=== PATIENT | male | born 1945 | race Caucasian/White ===

== ENCOUNTER 2019-10-16 08:03 | Emergency (ER) | payer MEDICARE, MEDICAID, SELFPAY ==
[2019-10-16 07:55] VITALS: BP 134/113; PULSE 101; RESP 16; TEMP 37; O2SAT 93; BMI 27.3
--- NOTE | 2019-10-16 07:55 | W.ED.MALEGU ---
HPI - Male Genitourinary General: Chief complaint: Urogenital-Male Stated complaint: Catheter issues History of Present Illness: HPI Narrative: 73-year-old male brought in by EMS for problems with catheter. Nursing reports he has been draining around the catheter. He is not had any fever sweats or chills he is complaining of some soreness on his buttocks as well. He denies fever sweats chills nausea vomiting or diarrhea denies shortness of breath or chest pain Associated symptoms: Deny dysuria, nausea or vomiting Review of Systems Const: Denies: fever, chills, body aches, change in appetite, fatigue or malaise ENMT: Denies: throat pain, ear pain, nasal discharge or nasal congestion Card: Denies: chest pain, edema, shortness of breath on exertion or shortness of breath when lying down Resp: Denies: shortness of breath, productive cough or non-productive cough GI: Denies: abdominal pain, nausea, vomiting, vomiting blood, coffee grounds in vomit, diarrhea, constipation, bloating, blood in stool or black tarry stool : Denies: flank pain, painful urination, urinary frequency or urinary urgency Skin/Breast: Denies: rash or itching PFSH ED PFSH: Statuses (acute, chronic, etc) shown below reflect problem list status as previously entered and may not be historically accurate Medical History Elevated prostate specific antigen [PSA] (Acute) Erosion of urethra (Acute) Urinary retention (Chronic) Surgical History Cystostomy in place (Acute) S/P cholecystectomy (Acute) Family History Father Cancer Mother , 90 CAD (coronary artery disease) Social History Smoking and tobacco status: former smoker Alcohol intake: never Marital status: Current occupational status: retired Physical Exam Const: COMMON NORMALS: no apparent distress GENERAL APPEARANCE: cooperative and comfortable ORIENTATION/CONSCIOUSNESS: Yes awake, Yes oriented to person, Yes oriented to place and Yes oriented to time HENMT: COMMON NORMALS: normocephalic, head/scalp atraumatic, hearing grossly normal bilaterally, external ears normal, EAC's normal, TM's normal bilaterally, nasal mucous membranes and turbinates normal, moist oral mucous membranes and oropharynx normal HEAD & SCALP: normocephalic and atraumatic NOSE: nasal mucous membranes and turbinates normal EXTERNAL EAR: Yes external ears normal EXTERNAL AUDITORY CANAL: EAC's normal TYMPANIC MEMBRANE: TM's normal bilaterally Eye: COMMON NORMALS: PERRL, EOMs intact bilaterally, conjunctivae normal and no scleral icterus CONJUNCTIVA: Yes conjunctivae normal PUPIL: Yes PERRL Neck/C-Spine: COMMON NORMALS: full ROM, no lymphadenopathy, supple and no JVD Lymph: LYMPHATIC: no lymphadenopathy noted and no lymphedema noted Resp: COMMON NORMALS: normal respiratory effort, no retractions, no use of accessory muscles and clear to auscultation bilaterally AUSCULTATION: clear to auscultation bilaterally Cardio: COMMON NORMALS: no JVD, regular rate, regular rhythm and no murmurs RATE: regular rate RHYTHM: regular rhythm GI: COMMON NORMALS: soft to palpation and no hepatosplenomegaly AUSCULTATION: Yes normoactive bowel sounds PALPATION: Yes soft, No tender, No guarding and Yes no hepatosplenomegaly Extremity: COMMON NORMALS: normal to inspection, normal capillary refill, no clubbing, cyanosis or edema, no calf tenderness and no pedal edema Neuro: SENSORIUM/ORIENTATION: Yes oriented to person, Yes oriented to place and Yes oriented to time Skin: NARRATIVE SKIN EXAM: Patient reported buttocks being sore when we examine his buttocks essentially from the belt line down to the gluteal fold the skin is macerated with small punctate areas scattered where there is partial-thickness degeneration from the skin no active drainage no sharp erythema no palpable nodules or abscesses. No exposed underlying tissue. Course ED course: Called patient's attending to discuss the skin care issues in the buttocks. We had called the senior care is difficult to assess from a conversation of them whether or not they were managing the pressure ulcer with wound care services. Discussed with patient's attending he may need this. At this time there is not appear to be an infection in the buttocks area related to this large area of skin breakdown however I am quite concerned that this may develop if this is not treated quickly. His attending will take appropriate steps at the senior care. Vital Signs: Vital signs: Vital Signs Temperature 98.5 F 10/16/19 10:25 Pulse Rate 84 10/16/19 10:25 Respiratory Rate 16 10/16/19 10:25 Blood Pressure 138/66 10/16/19 10:25 Pulse Oximetry 94 10/16/19 10:25 MDM - Male Lab Data: Labs: Lab Results 10/16/19 10/16/19 10/16/19 Range/Units 08:05 08:28 08:28 WBC 9.8 (4.0-10.0) 10^3/ uL RBC 4.31 (4.1-5.3) 10^6/u L Hgb 12.1 (11.7-16.6) g/dL Hct 37.6 L (42.0-52.0) % MCV 87.2 (80-94) fL MCH 28.1 (28.0-34.0) pg MCHC 32.2 (30.0-36.0) g/dL RDW 16.7 H (12.1-15.1) % Plt Count 201 (130-400) 10^3/c mm MPV 11.7 H (7.4-10.4) fL Neut % (Auto) 83.3 % Lymph % (Auto) 6.9 % [place] % (Auto) 4.8 % Eos % (Auto) 4.1 % Baso % (Auto) 0.6 % Neut # (Auto) 8.2 H (1.8-7.7) 10^3/u L Lymph # (Auto) 0.7 L (0.8-4.8) 10^3/u L [place] # (Auto) 0.5 (0.2-0.9) 10^3/u L Eos # (Auto) 0.4 (0.0-0.8) 10^3/u L Baso # (Auto) 0.1 (0.0-0.1) 10^3/u L Nucleated RBC % (a uto) 0 % Nucleated RBCs # 0.0 /100WBC Sodium 131 L (136-145) mmol/L Potassium 3.9 (3.5-5.1) mmol/L Chloride 97 L (98-107) mmol/L Carbon Dioxide 22 (22-29) mmol/L Anion Gap 15.9 (5-19) BUN 8 (8-23) mg/dL Creatinine 0.7 (0.7-1.2) mg/dL Glucose 170 H (74-106) mg/dL Calcium 8.8 (8.5-10.5) mg/dL Total Bilirubin 0.5 (0.15-1.2) mg/dL AST 16 (0-40) U/L ALT 11 (0-41) U/L Alkaline Phosphata se 129 (40-130) IU/L Total Protein 7.7 (6.6-8.7) g/dL Albumin 3.4 L (3.5-5.2) g/dL Globulin 4.3 (1.3-4.6) g/dL Urine Color Yellow (Yellow) Urine Appearance Sl hazy (CLEAR) Urine pH 7.0 (5-7) Ur Specific Gravit y 1.010 (1.005-1.030) Urine Protein Trace (Negative) Urine Glucose (UA) Norm (Normal) Urine Ketones Negative (Negative) Urine Occult Blood 3+ H (Negative) Urine Nitrate Positive H (Negative) Urine Bilirubin Neg (NEGATIVE) Urine Urobilinogen 1 H (Negative) mg/dL Ur Leukocyte Pauline ase 2+ H (Negative) Urine RBC 10-15 H (0-2) /hpf Urine WBC 40-55 H (0-5) /hpf Ur Squamous Epith Cells 0-4 H (0-5) Urine Bacteria 1+ H (NONE) Urine Mucus Trace Discharge Plan Discharge Patient Disposition: [facility] Clinical Impression: Urinary tract infection, Chronic suprapubic catheter, Decubitus ulcer of buttock, stage 2 Condition: Stable Prescriptions: New Bactrim DS 800-160 mg tablet 1 tab PO BID 5 Days Qty: 10 RF: 0 No Action bisacodyl [Dulcolax (bisacodyl)] 10 mg suppository 10 mg MD .prn RF: 0 magnesium hydroxide [Vela Milk of Magnesia] 400 mg/5 mL suspension 15 ml PO DAILY PRN (Reason: Constipation) RF: 0 acetaminophen [Tylenol] 325 mg capsule 650 mg PO Q4H PRN (Reason: Pain) RF: 0 aspirin 325 mg tablet 325 mg PO .prn RF: 0 loratadine 10 mg capsule 10 mg PO DAILY PRN (Reason: Allergy Symptoms) RF: 0 finasteride 5 mg tablet 5 mg PO DAILY RF: 0 omeprazole 40 mg capsule,delayed release(DR/EC) 40 mg PO DAILY RF: 0 metoprolol tartrate 50 mg tablet 50 mg PO BID RF: 0 docusate sodium [Colace] 100 mg capsule 100 mg PO BID RF: 0 digoxin 125 mcg (0.125 mg) tablet 125 mcg PO DAILY RF: 0 atorvastatin 20 mg tablet 20 mg PO DAILY RF: 0 nitroglycerin [Nitrostat] 0.4 mg tablet, sublingual 0.4 mg SUBLINGUAL .prn RF: 0 mineral oil [Fleet Mineral Oil] Enema 118 ml MD .prn RF: 0 Biofreeze (menthol) 4 % gel 1 applic TOPICAL .prn PRN (Reason: Pain) RF: 0 hydrocodone-acetaminophen 5-325 mg tablet 1 tab PO BEDTIME PRN (Reason: Pain) RF: 0 Novolog Flexpen U-100 Insulin 100 unit/mL (3 mL) insulin pen 18 unit SUBCUT DAILY RF: 0 Eucerin Skin Calming Cream 1 applic TOPICAL .prn RF: 0 Levemir U-100 Insulin 100 unit/mL solution 70 unit SUBCUT BEDTIME RF: 0 hydrocodone-acetaminophen 5-325 mg Tablet 1 tab PO BID PRN (Reason: Pain) RF: 0 Eucerin Calming Itch-Relief 0.1 % Lotion 1 % TOPICAL BID RF: 0 Discharge Orders: Discharge Order (Routine); Ordered 10/16/19 Ordered By: Johnny Palumbo Referrals: Jannette Stephens MD [Primary Care Provider] - Discharge Diet: Usual diet Discharge Activity: Resume usual activity Activity Restrictions/Additional Instructions: Discharge back to the senior care we will start him on Bactrim until the culture results from the urine are back the catheter flushed without difficulty no changes for the catheter. Jennifer mostly concerned about the decubitus ulcers on his buttocks called and confirmed that he is getting wound care at the senior care and needs appropriate follow-up on a long-term basis. Discharge Date/Time: 10/16/19 11:52 Coding Level of Care Code ED Flumer for Kiesha Hull Exam Problem Focused
[2019-10-16 08:10] VITALS: O2SAT 94
--- NOTE | 2019-10-16 08:11 | PC.NURSE ---
Skin assessment shows breakdown to right heel with drainage. Lower back, buttocks, and posterior thighs bilateral have large color of redness with purple and breakdown of skin.
--- NOTE | 2019-10-16 08:27 | XRR_ITS ---
PROCEDURE INFORMATION: Exam: XR Chest, 1 View Exam date and time: 10/16/2019 9:04 AM Age: 73 years old Clinical indication: Dyspnea TECHNIQUE: Imaging protocol: XR of the chest Views: 1 view. COMPARISON: CR Chest 1 [place] [id number] 05/14/2019 10:38 AM FINDINGS: Lungs: Mild interstitial prominence. Questionable left basilar airspace/pleural disease which can be better evaluated with PA and lateral chest radiographs. Heart: Cardiac silhouette upper limits of normal in size. Diaphragms: Asymmetric elevation right hemidiaphragm. Bones/joints: Degenerative change. XR/XR chest 1V portable [id number] IMPRESSION: Questionable left basilar airspace/pleural disease which can be better evaluated with PA and lateral chest radiographs.
[2019-10-16 08:36] LABS: Basophils # 0.1 10^3/uL (0.0-0.1); Basophils % 0.6 %; Eosinophils # 0.4 10^3/uL (0.0-0.8); Eosinophils % 4.1 %; Hematocrit 37.6 % (42.0-52.0); Hemoglobin 12.1 g/dL (11.7-16.6); Lymphocytes # 0.7 10^3/uL (0.8-4.8); Lymphocytes % 6.9 %; Mean Corpuscular HGB Conc 32.2 g/dL (30.0-36.0); Mean Corpuscular Hemoglobin 28.1 pg (28.0-34.0); Mean Corpuscular Volume 87.2 fL (80-94); Mean Platelet Volume 11.7 fL (7.4-10.4); Monocytes # 0.5 10^3/uL (0.2-0.9); Monocytes % 4.8 %; Neutrophils # 8.2 10^3/uL (1.8-7.7); Neutrophils % 83.3 %; Nucleated Red Blood Cells % 0 %; Platelet Count 201 10^3/cmm (130-400); Red Blood Count 4.31 10^6/uL (4.1-5.3); Red Cell Distribution Width 16.7 % (12.1-15.1); White Blood Count 9.8 10^3/uL (4.0-10.0)
[2019-10-16 08:37] VITALS: RESP 18
[2019-10-16] MEDS: morphine 4 mg/mL SDV 1 mL 2 MG IVP (08:37)
[2019-10-16] MEDS: ondansetron 2 mg/ML SDV 2 mL 4 MG IVP (08:37)
[2019-10-16 08:56] LABS: Alanine Aminotransferase 11 U/L (0-41); Albumin Level 3.4 g/dL (3.5-5.2); Alkaline Phosphatase 129 IU/L (40-130); Anion Gap 15.9 (5-19); Aspartate Amino Transferase 16 U/L (0-40); Blood Urea Nitrogen 8 mg/dL (8-23); Calcium 8.8 mg/dL (8.5-10.5); Carbon Dioxide 22 mmol/L (22-29); Chloride 97 mmol/L (98-107); Globulin 4.3 g/dL (1.3-4.6); Glucose 170 mg/dL (74-106); Potassium 3.9 mmol/L (3.5-5.1); Sodium 131 mmol/L (136-145); Total Bilirubin 0.5 mg/dL (0.15-1.2); Total Protein 7.7 g/dL (6.6-8.7)
[2019-10-16 09:29] LABS: Add Urine Microscopic? YES; Bilirubin Urine Neg (NEGATIVE); Blood Urine 3+ (Negative); Glucose Urine UA Norm (Normal); Ketones Urine Negative (Negative); Leukocyte Esterase Urine 2+ (Negative); Nitrate Urine Positive (Negative); Protein Urine Trace (Negative); Urine Appearance SL Hazy (CLEAR); Urine Color Yellow (Yellow); Urobilinogen Urine 1 mg/dL (Negative)
[2019-10-16 09:30] LABS: Bacteria Urine 1+; Mucus Urine TRACE; Squamous Epithelial Cell Urine 0-4 (0-5); WBC Urine 40-55 /hpf (0-5)
[2019-10-16 09:31] LABS: Add Urine Culture? No
[2019-10-16 09:35] VITALS: BP 108/64; PULSE 99; O2SAT 95
[2019-10-16 10:25] VITALS: BP 138/66; PULSE 84; RESP 16; TEMP 36.9; O2SAT 94
--- NOTE | 2019-10-16 10:29 | PC.NURSE ---
jockey valet at [facility] called, report given. She did not know for certain if patient receives wound care for skin breakdown to backside. RN was uncertain on many aspects of patients care at [facility]. Dr. Palumbo notified.
--- NOTE | 2019-10-16 10:44 | PC.NURSE ---
Blayne kumar scheduled, reference number [id number]
== END 2019-10-16 11:52 | disposition skilled nursing facility (03) ==
PROVIDERS: Emergency Provider Family Medicine; Family Provider Family Medicine; PCP Family Medicine
DX: N39.0 Urinary tract infection, site not specified (principal); L89.302 Pressure ulcer of unspecified buttock, stage 2; Z79.82 Long term (current) use of aspirin; Z79.4 Long term (current) use of insulin; Z87.891 Personal history of nicotine dependence
CPT/HCPCS: 36415; 71045; 80053; 81001; 85025; 87040; 87077; 87086; 87186; 96374; 96375; 99283; A9270; J2270; J2405

== ENCOUNTER 2020-05-28 17:08 | Emergency (ER) | payer MEDICARE, MEDICAID, SELFPAY ==
[2020-05-28 17:29] VITALS: BP 121/71; PULSE 70; RESP 16; TEMP 36.4; O2SAT 99; BMI 27.3
--- NOTE | 2020-05-28 17:48 | ED_ITS ---
HPI - General Adult General: Chief complaint: General Medical Stated complaint: CATH REPLACEMENT Time Seen by Provider: 05/28/20 17:23 History of Present Illness: HPI narrative: 74-year-old male. Suprapubic catheter displaced at the longterm unknown length of time and is been out the suprapubic tract has been established for an extended period of time and is well granulated. Staff at [facility] made several attempts to replace it were unable to do so so he was sent here. Onset (ago): unknown Location: abdomen Relieving factors: none Exacerbating factors: none Associated symptoms: Deny chest pain, confusion, cough, diaphoresis, decreased appetite, dyspnea, fevers/chills, headache(s), malaise, nausea, rash, palpitations, seizures, short of breath, syncope, vomiting or weakness Treatments prior to arrival: none Review of Systems Const: Denies: malaise or diaphoresis Card: Denies: chest pain, palpitations or syncope Resp: Denies: dyspnea GI: Denies: nausea or vomiting : Denies: flank pain, dysuria, urinary frequency or urinary urgency Skin/Breast: Denies: rash Neuro: Denies: headache(s) or confusion PFSH ED PFSH: Medical History Elevated prostate specific antigen [PSA] Erosion of urethra Urinary retention Surgical History Cystostomy in place S/P cholecystectomy Family History Father Cancer Mother , 90 CAD (coronary artery disease) Social History Smoking and tobacco status: former smoker Alcohol intake: never Marital status: Current occupational status: retired Physical Exam Const: COMMON NORMALS: no acute distress GENERAL APPEARANCE: cooperative and comfortable HENMT: COMMON NORMALS: normocephalic, atraumatic and hearing grossly normal bilaterally HEAD & SCALP: normocephalic and atraumatic Neck/C-Spine: COMMON NORMALS: no JVD Resp: COMMON NORMALS: normal respiratory effort, No retractions, No use of accessory muscles and clear to auscultation bilaterally AUSCULTATION: clear to auscultation bilaterally Cardio: COMMON NORMALS: no JVD, regular rate, regular rhythm and No murmurs present (Cardio) RATE: regular rate RHYTHM: regular rhythm GI: COMMON NORMALS: Soft to palpation and No hepatosplenomegaly present AUSCULTATION: Yes normoactive bowel sounds PALPATION: Yes Soft to palpation, No Tenderness to palpation present (GI), No Guarding due to palpation present (GI) and Yes No hepatosplenomegaly present OTHER: Suprapubic catheter site well granulated is leaking small amounts of urine. Extremity: COMMON NORMALS: normal to inspection, capillary refill normal, no clubbing, cyanosis or edema, no calf tenderness and no pedal edema Skin: COMMON NORMALS: no rashes or lesions noted GENERAL SKIN EXAM: no rashes or lesions noted Procedures Catheter Insertion (Urinary) Reason for placing indwelling catheter: Acute urinary retention Patient has the following: history of catheter associated urinary tract infection Bladder scan/ultrasound used before catheterization: Yes Estimated amount of urine (mLs): 400 Antiseptic solution prep: Other Catheter type/location: Suprapubic Catheter balloon size (mL): 30 Results: ultrasound used for placement verification Complications: Multiple attempts made on suprapubic catheter using 18 which is usually present also using a 12 and a 16 finally 16 coud? none of which we could get to the bladder. Examining the tract under ultrasound he can see the tip of the catheter at the bladder wall but would not pass almost appears as if there was a pocket outside of the bladder. Shaver was then placed through the urethra humate meatus of the penis. There is significant breakdown to the meatus from long-term chronic indwelling Shaver previously. Discussed with Dr. George he recommends this approach since the suprapubic catheter appears to have been out long enough to close the tract. Course Vital Signs: Vital signs: Vital Signs Temperature 97.6 F 05/28/20 17:29 Pulse Rate 70 05/28/20 17:29 Respiratory Rate 16 05/28/20 19:38 Blood Pressure 121/71 05/28/20 17:29 Pulse Oximetry 99 05/28/20 17:29 MDM - General Adult MDM Narrative: Medical decision making narrative: Pubic catheter out for an unknown length of time multiple attempts made using various catheters and even feeding tube could reestablish the tract evidently has been outlying office begun to close. Discussed by phone with Dr. George he is not on-call and not currently available to come to the emergency room [place]. He advised us to try feeding tube which we did which did not pass. On his advice we placed a Shaver through the urethral meatus. There is significant breakdown of the meatus because of a long-term Shaver that was previously in place however this will allow decompression of the bladder until able to get the patient back in for reestablishment of the suprapubic catheter. Discharge Plan Discharge Patient Disposition: Home Clinical Impression: Encounter for suprapubic catheter care, Urinary retention, Cystostomy in place Condition: Stable Prescriptions: No Action bisacodyl [Dulcolax (bisacodyl)] 10 mg suppository 10 mg [place] .prn RF: 0 magnesium hydroxide [Vela Milk of Magnesia] 400 mg/5 mL suspension 15 ml PO DAILY PRN (Reason: Constipation) RF: 0 acetaminophen [Tylenol] 325 mg capsule 650 mg PO Q4H PRN (Reason: Pain) RF: 0 aspirin 325 mg tablet 325 mg PO .prn RF: 0 loratadine 10 mg capsule 10 mg PO DAILY PRN (Reason: Allergy Symptoms) RF: 0 finasteride 5 mg tablet 5 mg PO DAILY RF: 0 omeprazole 40 mg capsule,delayed release(DR/EC) 40 mg PO DAILY RF: 0 metoprolol tartrate 50 mg tablet 50 mg PO BID RF: 0 docusate sodium [Colace] 100 mg capsule 100 mg PO BID RF: 0 digoxin 125 mcg (0.125 mg) tablet 125 mcg PO DAILY RF: 0 atorvastatin 20 mg tablet 20 mg PO DAILY RF: 0 nitroglycerin [Nitrostat] 0.4 mg tablet, sublingual 0.4 mg SUBLINGUAL .prn RF: 0 mineral oil [Fleet Mineral Oil] Enema 118 ml [place] .prn RF: 0 Biofreeze (menthol) 4 % gel 1 applic TOPICAL .prn PRN (Reason: Pain) RF: 0 hydrocodone-acetaminophen 5-325 mg tablet 1 tab PO BEDTIME PRN (Reason: Pain) RF: 0 Novolog Flexpen U-100 Insulin 100 unit/mL (3 mL) insulin pen 18 unit SUBCUT DAILY RF: 0 Eucerin Skin Calming Cream 1 applic TOPICAL .prn RF: 0 Levemir U-100 Insulin 100 unit/mL solution 70 unit SUBCUT BEDTIME RF: 0 hydrocodone-acetaminophen 5-325 mg Tablet 1 tab PO BID PRN (Reason: Pain) RF: 0 Eucerin Calming Itch-Relief 0.1 % Lotion 1 % TOPICAL BID RF: 0 Discharge Orders: Discharge Order (Routine); Ordered 05/28/20 Ordered By: Johnny Palumbo Referrals: Jannette Stephens MD [Primary Care Provider] - Activity Restrictions/Additional Instructions: Follow-up with urology as soon as you are able Discharge Date/Time: 05/28/20 19:40 Coding Level of Care Code ED Interior Design Coordinator for Kiesha Hull
[2020-05-28 19:38] VITALS: RESP 16
== END 2020-05-28 19:40 | disposition home or self-care (01) ==
LOC: ER 18:12
PROVIDERS: Emergency Provider Family Medicine; PCP Family Medicine
DX: Z46.6 Encounter for fitting and adjustment of urinary device (principal); R33.9 Retention of urine, unspecified; Z93.50 Unspecified cystostomy status; Z79.82 Long term (current) use of aspirin; Z79.4 Long term (current) use of insulin; Z87.891 Personal history of nicotine dependence
CPT/HCPCS: 12345; 51702; 99283

== ENCOUNTER 2020-06-24 15:09 | Outpatient (CLI) | payer MEDICARE, MEDICAID, SELFPAY | END 2020-06-24 15:10 | disposition home or self-care (01) | LOC: WOUND 15:10 | PROVIDERS: PCP Family Medicine; Visit Provider Nurse Practitioner Family | DX: L89.612 Pressure ulcer of right heel, stage 2 (principal) | CPT/HCPCS: 11042 ==

== ENCOUNTER 2020-06-27 11:28 | Day surgery (SDC) | payer MEDICARE, MEDICAID, SELFPAY ==
[2020-06-26 09:27] VITALS: BMI 30.7
[2020-06-27 11:54] VITALS: BP 131/69; PULSE 54; RESP 18; TEMP 36.6; O2SAT 97
[2020-06-27] MEDS: sodium chloride 0.9% 1,000 ML 30 ML IV (12:00)
--- NOTE | 2020-06-27 12:07 | ANES.PREANE2 ---
Pre-Anesthetic Assessment Pre-Anesthetic Assessment: Height/Weight: Height 1.68 m Weight 86.364 kg Temp Pulse Resp BP Pulse Ox 97.9 F 54 L 18 131/69 97 06/27/20 11:54 06/27/20 11:54 06/27/20 11:54 06/27/20 11:54 06/27/20 11:54 Preop Diagnosis: Chronic urinary retention, displaced suprapubic tube Proposed Procedure: Operation Date: 06/27/20 13:00 Proposed Procedures p Suprapubic Catheter Placement 97533 R33.9(Not Applicable) - Edvin George MD s Cystoscopy(Not Applicable) - Edvin George MD Last intake: Intake Last Liquid Date 06/26/20 Last Liquid Time 18:00 Last Solid Date 06/26/20 Last Solid Time 18:00 CV/HEM: CV/HEM: Afib, CHF, HTN and PVD Comments: sestabmibi stress 2018 - EF 73%, ischemia RCA/LCX CP stress 2018 - negative Metabolic: Metabolic: DM and Hyperlipidemia Neuropsych: Comments: spinal cord lesion , CVA, hemiparesis Anesthetic Plan: ASA status: 4 Risk of > 500 ml blood loss (7ml/kg in children): No PFSH Anesthesia PFSH: Medical History (Updated 06/19/20 @ 11:31 by Edvin George MD) Elevated prostate specific antigen [PSA] Erosion of urethra Urinary retention Surgical History Cystostomy in place S/P cholecystectomy Family History Father Cancer Mother , 90 CAD (coronary artery disease) Social History Smoking and tobacco status: former smoker Alcohol intake: never Marital status: Current occupational status: retired Data Anesthesia Cardiac Studies: No Data to Display
[2020-06-27 12:18] LABS: Glucose Point of Care 141 mg/dL (70-110)
--- NOTE | 2020-06-27 13:09 | W.PM.OPSUD ---
Surgery/Procedure H&P Update DATE OF PROCEDURE: June 27, 2020 DATE H&P PERFORMED: 06/19/20 H&P UPDATE INFORMATION: I have reviewed H&P completed within last 30 days, I have examined patient prior to procedure, No changes to prior documentation and H&P is in [facility] on date indicated PREOP DIAGNOSIS: Chronic urinary retention, displaced suprapubic tube PLANNED PROCEDURE: Operation Date: 06/27/20 13:00 Proposed Procedures p Suprapubic Catheter Placement 60295 R33.9(Not Applicable) - Edvin George MD s Cystoscopy(Not Applicable) - Edvin George MD
--- NOTE | 2020-06-27 13:13 | PM.OP ---
Operative Report Date of procedure: June 27, 2020 Pre-op Diagnosis: Chronic urinary retention, displaced suprapubic tube Post-op diagnosis: same Procedure Done: 1. Cystoscopy 2. Percutaneous placement of cystostomy tube, 16 [facility] Pathology: none sent Surgeon: Ariel Anesthesia: General Estimated blood loss: Minimal Urine output: Not measured Complications: None Findings: Placed without difficulty. 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 Recently his suprapubic tube became dislodged and at time of discovery the suprapubic tract had scarred shut. It was decided to replace the suprapubic tube under anesthesia. No contraindications to surgery. He is been holding his aspirin. Procedure: After routine preoperative evaluation examination and obtaining of informed consent he was taken to the operating suite on 06/27/2020 where general anesthesia was administered without difficulty after appropriate timeout was performed, SCDs confirmed to be functioning, preoperative antibiotics administered, beta-melanie protocol confirmed. Prepped and draped in the usual sterile fashion in dorsolithotomy position pain careful attention to avoiding pressure points. [address] [facility] cystoscope with 30 degree lens was introduced into the urethral meatus and advanced into the bladder under videoscopy. Bladder was systematically examined with 30 and 70 degree lens scopes. With a [address] in his bladder pressure placed on the anterior wall was easily identifiable with the bladder distended. A spinal needle was passed just inferior and to the left of his previous suprapubic site and into the bladder without difficulty. Localization was confirmed to be appropriate in position. An 18 [address] [facility] inner diameter suprapubic trocar with sheath was then advanced under cystoscopic guidance through the same tract into the bladder. The trocar was removed after the sheath was all the way into the bladder and an [address] [facility] [place] catheter was passed into the bladder under cystoscopic guidance the balloon inflated with 10 cc and the sheath withdrawn. The catheter was snugged to the anterior bladder wall and then secured with 2 nonabsorbable sutures to the skin. Spontaneous drainage and confirmed the catheter to be functioning well. Sterile dressing was applied and the procedure completed. PLANS: 1. Discharge from outpatient surgery and follow-up in about 5 weeks with suprapubic changed to 18-20 [facility].
[2020-06-27 14:01] VITALS: BP 99/61; PULSE 62; RESP 18; TEMP 36.1; O2SAT 94
[2020-06-27 14:16] VITALS: BP 137/72; PULSE 59; RESP 18; TEMP 36.1; O2SAT 95
--- NOTE | 2020-06-27 15:00 | ANE.PACU2 ---
Inpatient post-anesthesia follow up: Airway intact: Yes Vital signs: Temperature 97.0 F Pulse Rate 59 Respiratory Rate 18 Blood Pressure 137/72 Pulse Oximetry 95 Oxygen Delivery Me thod Room Air Oxygen Flow Rate Fraction of Inspir ed Oxygen Hydration adequate: Yes Nausea and vomiting: No Pain level: 2 Mental status: Baseline
== END 2020-06-27 15:00 | disposition home or self-care (01) ==
PROVIDERS: PCP Family Medicine; Visit Provider Urology
PROC: (CPT 51102; principal; 2020-06-27 13:00)
PROC: 0TJB8ZZ Inspection of Bladder, Via Natural or Artificial Opening Endoscopic (ICD-10-PCS; CPT 52000; 2020-06-27 13:00)
DX: R33.9 Retention of urine, unspecified (principal); E11.9 Type 2 diabetes mellitus without complications; E78.5 Hyperlipidemia, unspecified; Z86.73 Personal history of transient ischemic attack (TIA), and cerebral infarction without residual deficits; Z87.891 Personal history of nicotine dependence
CPT/HCPCS: 51102; 12345; 36416; 82962; J0690; J2704; J3010; J7030

== ENCOUNTER 2020-08-07 09:45 | Outpatient (CLI) | payer MEDICARE, MEDICAID, SELFPAY | END 2020-08-07 09:46 | disposition home or self-care (01) | LOC: WOUND 09:47 | PROVIDERS: PCP Family Medicine; Visit Provider Nurse Practitioner Family | DX: I96 Gangrene, not elsewhere classified (principal); L89.623 Pressure ulcer of left heel, stage 3 | CPT/HCPCS: 11042 ==

== ENCOUNTER 2020-09-22 21:03 | Emergency (ER) | payer MEDICARE, MEDICAID, SELFPAY ==
[2020-09-22 21:07] VITALS: BP 147/82; PULSE 61; RESP 18; TEMP 36.8; O2SAT 97; BMI 29.8
[2020-09-22 22:09] VITALS: BP 135/75; PULSE 59; RESP 17; O2SAT 97
--- NOTE | 2020-09-22 22:48 | PC.NURSE ---
Unable to flush suprapubic catheter. Physician notified.
[2020-09-23] VITALS: BP 127/68; PULSE 67; RESP 17; O2SAT 97
[2020-09-23 00:39] LABS: Add Urine Microscopic? YES; Bilirubin Urine Neg (Negative); Blood Urine 3+ (Negative); Glucose Urine UA Norm (Normal); Ketones Urine Negative (Negative); Leukocyte Esterase Urine 2+ (Negative); Nitrate Urine Negative (Negative); Protein Urine 1+ (Negative); Urine Appearance Cloudy (CLEAR); Urine Color Yellow (Yellow); Urobilinogen Urine 1 mg/dL (Negative); pH Urine 7 (5-7)
[2020-09-23 00:48] LABS: Add Urine Culture? Yes; Amorphous Sediment Urine 4+ /hpf; Bacteria Urine 4+ /hpf; RBC Urine TOO NUMEROUS TO CNT /hpf (0-2); WBC Urine TOO NUMEROUS TO CNT /hpf (0-5)
[2020-09-23] MEDS: nitrofurantoin SR (BID) 100 mg Capsule PO (01:22)
[2020-09-23 01:29] VITALS: BP 147/77; PULSE 59; RESP 16; TEMP 36.8; O2SAT 97
--- NOTE | 2020-09-23 01:29 | PC.NURSE ---
Called [facility] [place] to set up patient ride back to group home. [facility] stated it would be 30 minutes to 3 hours to set up ride.
--- NOTE | 2020-09-23 01:52 | W.ED.MALEGU ---
HPI - Male Genitourinary General: Chief complaint: Urogenital-Male Stated complaint: CATH ISSUES Time Seen by Provider: 09/22/20 21:10 History of Present Illness: HPI Narrative: 74-year-old gentleman with chronic suprapubic catheter, indwelling. He presents from a long-term where his catheter seems to be clogged. Bloody output was noted. He denies any fever, increasing discomfort, or other symptoms Complaint: other Onset (ago): hour(s) Duration: constant Severity: moderate Quality: other Relieving factors: none Exacerbating factors: none Context: indwelling catheter Associated symptoms: Reports hematuria and urinary retention; Deny fevers/chills or nausea Review of Systems Const: Denies: fever(s) or chills Card: Denies: chest pain or palpitations Resp: Denies: dyspnea, productive cough or non-productive cough GI: Denies: nausea : Reports: hematuria Neuro: Denies: headache(s) or confusion PFS ED PFSH: Medical History (Updated 09/23/20 @ 00:58 by Quincy Mustafa DO) Elevated prostate specific antigen [PSA] Erosion of urethra Urinary retention Surgical History Cystostomy in place S/P cholecystectomy Family History Father Cancer Mother , 90 CAD (coronary artery disease) Social History Smoking and tobacco status: former smoker Alcohol intake: never Marital status: Current occupational status: retired Physical Exam Const: COMMON NORMALS: no acute distress, patient oriented x3 and alert Chest: COMMONS NORMALS: normal inspection of the chest Resp: COMMON NORMALS: normal respiratory effort, No retractions, No use of accessory muscles and clear to auscultation bilaterally AUSCULTATION: clear to auscultation bilaterally Cardio: COMMON NORMALS: regular rate, regular rhythm and No murmurs present (Cardio) RATE: regular rate RHYTHM: regular rhythm : OTHER: Suprapubic catheter in place, blood in the tube. No output, bloody dark urine in the Shaver bag. Neuro: COMMON NORMALS: patient oriented x3 SENSORIUM/ORIENTATION: Yes alert Course ED course: Once appropriate Shaver size was found, indwelling suprapubic catheter was removed without complication. Under sterile technique 20 Yi catheter was placed through the same suprapubic opening with immediate drainage of cloudy urine that did not appear grossly bloody. Urinalysis from fresh sample shows significant white and red cells, with bacteria, and leukocyte esterase suggestive urinary tract infection. He will be treated for this. He is hemodynamically stable. He is afebrile. Vital Signs: Vital signs: Vital Signs Temperature 98.2 F 09/23/20 01:29 Pulse Rate 59 L 09/23/20 01:29 Respiratory Rate 16 09/23/20 01:29 Blood Pressure 147/77 09/23/20 01:29 Pulse Oximetry 97 09/23/20 01:29 MDM - Male Lab Data: Labs: Lab Results 09/23/20 Range/Units 00:27 Urine Color Yellow (Yellow) Urine Appearance Cloudy (CLEAR) Urine pH 7 (5-7) Ur Specific Gravit y 1.010 (1.005-1.030) Urine Protein 1+ H (Negative) Urine Glucose (UA) Norm (Normal) Urine Ketones Negative (Negative) Urine Blood 3+ H (Negative) Urine Nitrate Negative (Negative) Urine Bilirubin Neg (Negative) Urine Urobilinogen 1 H (Negative) mg/dL Ur Leukocyte Pauline ase 2+ H (Negative) Urine RBC Too numerous to c nt H (0-2) /hpf Urine WBC Too numerous to c nt H (0-5) /hpf Ur Squamous Epith Cells None (0-5) /hpf Amorphous Sediment 4+ /hpf Urine Bacteria 4+ H (NONE) /hpf Discharge Plan Discharge Patient Disposition: Home Clinical Impression: Acute UTI Blocked suprapubic catheter Qualifiers: Encounter type: initial encounter Qualified Code(s): T83.090A - Other mechanical complication of cystostomy catheter, initial encounter Condition: Stable Prescriptions: New Macrobid 100 mg capsule 100 mg PO BID 7 Days Qty: 14 RF: 0 No Action magnesium hydroxide [Vela Milk of Magnesia] 400 mg/5 mL suspension 15 ml PO DAILY PRN (Reason: Constipation) RF: 0 aspirin 325 mg tablet 325 mg PO .prn RF: 0 Hold Instructions: Resume on 07/01/20. finasteride 5 mg tablet 5 mg PO DAILY RF: 0 omeprazole 40 mg capsule,delayed release(DR/EC) 40 mg PO DAILY RF: 0 metoprolol tartrate 50 mg tablet 75 mg PO BID RF: 0 docusate sodium [Colace] 100 mg capsule 100 mg PO BID RF: 0 digoxin 125 mcg (0.125 mg) tablet 125 mcg PO DAILY RF: 0 atorvastatin 20 mg tablet 20 mg PO DAILY RF: 0 nitroglycerin [Nitrostat] 0.4 mg tablet, sublingual 0.4 mg SUBLINGUAL .prn RF: 0 Biofreeze (menthol) 4 % gel 1 applic TOPICAL .prn PRN (Reason: Pain) RF: 0 hydrocodone-acetaminophen 5-325 mg tablet 1 tab PO BEDTIME PRN (Reason: Pain) RF: 0 Eucerin Skin Calming Cream 1 applic TOPICAL .prn RF: 0 Levemir U-100 Insulin 100 unit/mL solution 75 unit SUBCUT BEDTIME RF: 0 Novolog Flexpen U-100 Insulin 100 unit/mL (3 mL) insulin pen 18 unit SUBCUT DAILY RF: 0 polyethylene glycol 3350 17 gram/dose powder 17 gm PO DAILY RF: 0 loratadine [Claritin] 10 mg tablet 10 mg PO DAILY RF: 0 nutritional [id number] 0.03-1 gram-kcal/mL liquid 1 each PO BID RF: 0 bisacodyl 10 mg suppository 10 mg LA DAILY PRNRF: 0 acetaminophen [Tylenol] 325 mg tablet 325 mg PO QID PRNRF: 0 prostat PO BID RF: 0 nystatin 100,000 unit/gram ointment 1 applic topical BID PRNRF: 0 hydrocodone-acetaminophen 5-325 mg Tablet 1 tab PO BID PRN (Reason: Pain) RF: 0 Eucerin Calming Itch-Relief 0.1 % Lotion 1 % TOPICAL BID RF: 0 Discharge Orders: Discharge ED (Routine); Ordered 09/23/20 Ordered By: Quincy Mustafa Referrals: Jannette Stephens MD [Primary Care Provider] - 4-7 days Discharge Diet: Usual diet and Diabetic Patient Instructions: Shaver Catheter Care, Urinary Tract Infection in Men (ED), How to Care for Your Suprapubic Catheter (ED) Activity Restrictions/Additional Instructions: Return for fever greater than 100, mental status changes, continued problems with the catheter, other concerning symptoms. Coding Level of Care Code ED In Store Marketing Associate for Chg Fwd Exam Expanded Problem Focused
--- NOTE | 2020-09-23 04:38 | PC.NURSE ---
Blayne called to finish set up for ride for patient.
== END 2020-09-23 06:10 | disposition home or self-care (01) ==
PROVIDERS: Emergency Provider Emergency Medicine; PCP Family Medicine
DX: T83.090A Other mechanical complication of cystostomy catheter, initial encounter (principal); N39.0 Urinary tract infection, site not specified; Z79.82 Long term (current) use of aspirin; Z79.4 Long term (current) use of insulin; Z87.891 Personal history of nicotine dependence
CPT/HCPCS: 12345; 51702; 81001; 87077; 87086; 87186; 99282; 99283

== ENCOUNTER 2020-11-07 09:32 | Outpatient (CLI) | payer MEDICARE, MEDICAID, SELFPAY | END 2020-11-07 09:33 | disposition home or self-care (01) | LOC: WOUND 09:33 | PROVIDERS: PCP Family Medicine; Visit Provider Nurse Practitioner Family | DX: E11.621 Type 2 diabetes mellitus with foot ulcer (principal); L97.422 Non-pressure chronic ulcer of left heel and midfoot with fat layer exposed | CPT/HCPCS: 11042; G0463; L4397 ==

== ENCOUNTER 2021-05-10 16:45 | Emergency (ER) | payer MEDICARE, MEDICAID, SELFPAY ==
[2021-05-10] VITALS (7 sets, daily range): BP systolic 94–119; BP diastolic 52–72; PULSE 64–87; RESP 12–18; TEMP 36.4–36.8; O2SAT 91–95
--- NOTE | 2021-05-10 17:25 | ED_ITS ---
HPI - Fever General: Chief Complaint: Fever Stated Complaint: FEVER; BODY ACHES Time Seen by Provider: 05/10/21 17:25 History of Present Illness: HPI Narrative: Patient was [facility] the ER [facility] for fever. It was reported patient had 105 fever. Patient was given Rocephin and acetaminophen prior to arrival to the ER. Patient has a history of diabetes, prostate problems, atrial fib, hyperlipidemia. Patient is nonverbal, poor historian, history was obtained from EMS and nursing staff. MD elicited complaint: fever Review of Systems General: Reports: 10 or more systems reviewed and unremarkable except in HPI and below PFSH ED PFSH: Medical History (Updated 05/10/21 @ 20:23 by EUGENIA Bates) Elevated prostate specific antigen [PSA] Erosion of urethra Urinary retention Surgical History Cystostomy in place S/P cholecystectomy Family History Father Cancer Mother , 90 CAD (coronary artery disease) Social History Smoking and tobacco status: former smoker Alcohol intake: never Marital status: Current occupational status: retired Physical Exam Const: COMMON NORMALS: no acute distress and patient oriented x3 GENERAL APPEARANCE: cooperative HENMT: COMMON NORMALS: normocephalic and Normal external nose present HEAD & SCALP: normal to inspection and normocephalic NOSE: Normal external nose present MOUTH: Normal oral and palatal mucosa present Eye: GENERAL EYE: appearance normal, both eyes and all related structures Neck/C-Spine: COMMON NORMALS: full ROM Lymph: LYMPHATIC: no lymphadenopathy noted Chest: COMMONS NORMALS: normal inspection of the chest Resp: COMMON NORMALS: normal respiratory effort EFFORT & INSPECTION: Yes able to speak in complete sentences Cardio: COMMON NORMALS: regular rate and regular rhythm RATE: regular rate RHYTHM: regular rhythm GI: COMMON NORMALS: Soft to palpation PALPATION: Yes Soft to palpation, Yes Tenderness to palpation present (GI) (lower abd), No Guarding due to palpation present (GI) and No Rebound tenderness present Back/Pelvis: COMMON NORMALS: thoracic and lumbar spine normal to inspection Extremity: COMMON NORMALS: normal to inspection Neuro: COMMON NORMALS: patient oriented x3 and moves all extremities Psych: COMMON NORMALS: mental status grossly normal and cooperative Skin: COMMON NORMALS: no rashes or lesions noted NARRATIVE SKIN EXAM: Heel protectors are in place to the lower extremity bilaterally. No sacral skin breakdown is noted. GENERAL SKIN EXAM: no rashes or lesions noted Course ED course: 1839, lactic acid is 4.0, patient's blood count is 33, 1 g of vancomycin was ordered for IV infusion along with 3.375 Zosyn per IV infusion. Patient had been given 1 g of Rocephin prior to arrival to the ER. Wjw Vital Signs: Vital signs: Vital Signs Temperature 97.5 F L 05/10/21 19:38 Pulse Rate 67 05/10/21 20:07 Respiratory Rate 16 05/10/21 20:07 Blood Pressure 100/56 05/10/21 20:07 Pulse Oximetry 92 05/10/21 20:07 MDM - Fever MDM Narrative: Medical decision making narrative: 75-year-old male patient was sent to the emergency room for concerns of high fever. Patient was given 1 dose of Rocephin 1 g at the senior care and some Tylenol prior to transport to the ER. On exam abdomen is soft with some mild suprapubic tenderness. Respirations were even lungs were clear to auscultation. Vital signs were normal. Differential diagnosis includes sepsis, UTI, pneumonia, bowel obstruction. Laboratory values did have an elevated white count of 33, CMP was unremarkable, lactate was at 4.0, patient was given Zosyn and 1 g of vancomycin for concerns of sepsis. CT returned no acute pathology. Urinalysis showed a large amount of red blood cells and white blood cells. Review of the previous urine cultures noticed multiple organisms with good coverage with cephalosporins. Patient did have resistance noted to tetracyclines, Floxin, and nitrofurantoin. Patient will be discharged back to the senior care with cefdinir. Lab Data: Labs: Lab Results 05/10/21 05/10/21 05/10/21 Range/Units 18:03 18:03 18:03 WBC 33.7 H* (4.0-10.0) 10^3/ uL RBC 4.60 (4.1-5.3) 10^6/u L Hgb 13.1 (11.7-16.6) g/dL Hct 40.9 L (42.0-52.0) % MCV 88.9 (80-94) fl MCH 28.5 (28.0-34.0) pg MCHC 32.0 (30.0-36.0) g/dL RDW 16.2 H (12.1-15.1) % Plt Count 210 (130-400) 10^3/c mm MPV 12.0 H (7.4-10.4) fL Neut % (Auto) 96.3 % Lymph % (Auto) 1.2 % Carver % (Auto) 1.6 % Eos % (Auto) 0.0 % Baso % (Auto) 0.3 % Neut # (Auto) 32.43 H (1.8-7.7) 10^3/u L Lymph # (Auto) 0.4 L (0.8-4.8) 10^3/u L Carver # (Auto) 0.5 (0.2-0.9) 10^3/u L Eos # (Auto) 0.0 (0.0-0.8) 10^3/u L Baso # (Auto) 0.1 (0.0-0.1) 10^3/u L Nucleated RBC % (a uto) 0 % Nucleated RBCs # 0.0 /100WBC Sodium 141 (136-145) mmol/L Potassium 3.3 L (3.5-5.1) mmol/L Chloride 105 (98-107) mmol/L Carbon Dioxide 22 (22-29) mmol/L Anion Gap 17.3 (5-19) BUN 17 (8-23) mg/dL Creatinine 1.1 (0.7-1.2) mg/dL GFR Calculation Not Reportable Glucose 53 L (65-115) mg/dL Calculated Osmolal ity 291 (285-295) mOsm/k g Lactic Acid 4.0 H (0.5-2.2) mmol/L Calcium 8.8 (8.5-10.5) mg/dL Total Bilirubin 0.4 (0.15-1.2) mg/dL AST 38 (0-40) U/L ALT 30 (0-41) U/L Alkaline Phosphata se 144 H (40-130) IU/L Total Protein 7.4 (6.6-8.7) g/dL Albumin 3.4 L (3.5-5.2) g/dL Globulin 4.0 (1.3-4.6) g/dL Urine Color (Yellow) Urine Appearance (CLEAR) Urine pH (5-7) Ur Specific Gravit y (1.005-1.030) Urine Protein (Negative) Urine Glucose (UA) (Normal) Urine Ketones (Negative) Urine Blood (Negative) Urine Nitrate (Negative) Urine Bilirubin (Negative) Urine Urobilinogen (Negative) mg/dL Ur Leukocyte Pauline ase (Negative) Urine RBC (0-2) /hpf Urine WBC (0-5) /hpf Ur Squamous Epith Cells (0-5) /hpf Amorphous Sediment Urine Bacteria (NONE) /hpf 05/10/21 Range/Units 19:37 WBC (4.0-10.0) 10^3/ uL RBC (4.1-5.3) 10^6/u L Hgb (11.7-16.6) g/dL Hct (42.0-52.0) % MCV (80-94) fl MCH (28.0-34.0) pg MCHC (30.0-36.0) g/dL RDW (12.1-15.1) % Plt Count (130-400) 10^3/c mm MPV (7.4-10.4) fL Neut % (Auto) % Lymph % (Auto) % Carver % (Auto) % Eos % (Auto) % Baso % (Auto) % Neut # (Auto) (1.8-7.7) 10^3/u L Lymph # (Auto) (0.8-4.8) 10^3/u L Carver # (Auto) (0.2-0.9) 10^3/u L Eos # (Auto) (0.0-0.8) 10^3/u L Baso # (Auto) (0.0-0.1) 10^3/u L Nucleated RBC % (a uto) % Nucleated RBCs # /100WBC Sodium (136-145) mmol/L Potassium (3.5-5.1) mmol/L Chloride (98-107) mmol/L Carbon Dioxide (22-29) mmol/L Anion Gap (5-19) BUN (8-23) mg/dL Creatinine (0.7-1.2) mg/dL GFR Calculation Glucose (65-115) mg/dL Calculated Osmolal ity (285-295) mOsm/k g Lactic Acid (0.5-2.2) mmol/L Calcium (8.5-10.5) mg/dL Total Bilirubin (0.15-1.2) mg/dL AST (0-40) U/L ALT (0-41) U/L Alkaline Phosphata se (40-130) IU/L Total Protein (6.6-8.7) g/dL Albumin (3.5-5.2) g/dL Globulin (1.3-4.6) g/dL Urine Color Yellow (Yellow) Urine Appearance Sl cloudy A (CLEAR) Urine pH 6.5 (5-7) Ur Specific Gravit y 1.000 L (1.005-1.030) Urine Protein 1+ H (Negative) Urine Glucose (UA) Norm (Normal) Urine Ketones Negative (Negative) Urine Blood 3+ H (Negative) Urine Nitrate Negative (Negative) Urine Bilirubin 1+ H (Negative) Urine Urobilinogen 8 H (Negative) mg/dL Ur Leukocyte Pauline ase 2+ H (Negative) Urine RBC >100 H (0-2) /hpf Urine WBC >100 H (0-5) /hpf Ur Squamous Epith Cells 0-4 H (0-5) /hpf Amorphous Sediment Not Reportable Urine Bacteria 2+ H (NONE) /hpf Discharge Plan Discharge Patient Disposition: Home Clinical Impression: Acute cystitis Qualifiers: Hematuria presence: without hematuria Qualified Code(s): N30.00 - Acute cystitis without hematuria Condition: Stable Prescriptions: New cefdinir 300 mg capsule 300 mg PO BID 10 Days Qty: 20 RF: 0 No Action magnesium hydroxide [Vela Milk of Magnesia] 400 mg/5 mL suspension 15 ml PO DAILY PRN (Reason: Constipation) RF: 0 aspirin 325 mg tablet 325 mg PO .prn RF: 0 Hold Instructions: Resume on 07/01/20. finasteride 5 mg tablet 5 mg PO DAILY RF: 0 omeprazole 40 mg capsule,delayed release(DR/EC) 40 mg PO DAILY RF: 0 metoprolol tartrate 50 mg tablet 75 mg PO BID RF: 0 docusate sodium [Colace] 100 mg capsule 100 mg PO BID RF: 0 digoxin 125 mcg (0.125 mg) tablet 125 mcg PO DAILY RF: 0 atorvastatin 20 mg tablet 20 mg PO DAILY RF: 0 nitroglycerin [Nitrostat] 0.4 mg tablet, sublingual 0.4 mg SUBLINGUAL .prn RF: 0 Biofreeze (menthol) 4 % gel 1 applic TOPICAL .prn PRN (Reason: Pain) RF: 0 hydrocodone-acetaminophen 5-325 mg tablet 1 tab PO BEDTIME PRN (Reason: Pain) RF: 0 Eucerin Skin Calming Cream 1 applic TOPICAL .prn RF: 0 Levemir U-100 Insulin 100 unit/mL solution 75 unit SUBCUT BEDTIME RF: 0 Novolog Flexpen U-100 Insulin 100 unit/mL (3 mL) insulin pen 18 unit SUBCUT DAILY RF: 0 polyethylene glycol 3350 17 gram/dose powder 17 gm PO DAILY RF: 0 loratadine [Claritin] 10 mg tablet 10 mg PO DAILY RF: 0 nutritional [id number] 0.03-1 gram-kcal/mL liquid 1 each PO BID RF: 0 bisacodyl 10 mg suppository 10 mg ID DAILY PRNRF: 0 acetaminophen [Tylenol] 325 mg tablet 325 mg PO QID PRNRF: 0 prostat PO BID RF: 0 nystatin 100,000 unit/gram ointment 1 applic topical BID PRNRF: 0 hydrocodone-acetaminophen 5-325 mg Tablet 1 tab PO BID PRN (Reason: Pain) RF: 0 Eucerin Calming Itch-Relief 0.1 % Lotion 1 % TOPICAL BID RF: 0 Discharge Orders: Discharge ED (Routine); Ordered 05/10/21 Ordered By: Candido You Referrals: Jannette Stephens MD [Primary Care Provider] - Discharge Diet: Usual diet Discharge Activity: Increase activity as tolerated Patient Instructions: Opioid Safety Activity Restrictions/Additional Instructions: Continue with routine care. Take cefdinir twice a day for next 7 to 10 days. Encourage plenty of fluids. Follow-up with primary care in 1 week. Return to the ER for worsening symptoms. Coding Level of Care Code ED Patient Monitor for Kiesha Hull Exam Comprehensive
--- NOTE | 2021-05-10 17:26 | XRR_ITS ---
PROCEDURE INFORMATION: Exam: XR Chest Exam date and time: 05/10/2021 5:26 PM Age: 75 years old Clinical indication: Fever TECHNIQUE: Imaging protocol: XR of the chest. Views: 1 view. COMPARISON: CR XR chest 1V portable [id number] 10/16/2019 8:29 AM FINDINGS: Lungs: Right base atelectasis. The left lung is clear. Pleural spaces: Unremarkable. No pleural effusion. No pneumothorax. Heart/Mediastinum: Unremarkable. No cardiomegaly. Diaphragm: Elevation of the right diaphragm is increased. Bones/joints: Unremarkable. XR/XR chest 1V portable [id number] IMPRESSION: 1. Elevation of the right diaphragm with mild right base atelectasis. Right phrenic nerve injury or paralysis is not excluded.
[2021-05-10 18:12] LABS: Basophils # 0.1 10^3/uL (0.0-0.1); Basophils % 0.3 %; Hematocrit 40.9 % (42.0-52.0); Hemoglobin 13.1 g/dL (11.7-16.6); Lymphocytes # 0.4 10^3/uL (0.8-4.8); Lymphocytes % 1.2 %; Mean Corpuscular Hemoglobin 28.5 pg (28.0-34.0); Mean Corpuscular Volume 88.9 fl (80-94); Monocytes # 0.5 10^3/uL (0.2-0.9); Monocytes % 1.6 %; Neutrophils # 32.43 10^3/uL (1.8-7.7); Neutrophils % 96.3 %; Nucleated Red Blood Cells % 0 %; Platelet Count 210 10^3/cmm (130-400); Red Cell Distribution Width 16.2 % (12.1-15.1)
[2021-05-10 18:22] LABS: White Blood Count 33.7 10^3/uL (4.0-10.0)
[2021-05-10] MEDS: sodium chloride 0.9% 500 ML 999 ML IV (18:30)
[2021-05-10 18:32] LABS: Alanine Aminotransferase 30 U/L (0-41); Albumin Level 3.4 g/dL (3.5-5.2); Alkaline Phosphatase 144 IU/L (40-130); Anion Gap 17.3 (5-19); Aspartate Amino Transferase 38 U/L (0-40); Blood Urea Nitrogen 17 mg/dL (8-23); Calcium 8.8 mg/dL (8.5-10.5); Carbon Dioxide 22 mmol/L (22-29); Chloride 105 mmol/L (98-107); Glucose 53 mg/dL (65-115); Osmolality Calculated 291 mOsm/kg (285-295); Potassium 3.3 mmol/L (3.5-5.1); Sodium 141 mmol/L (136-145); Total Bilirubin 0.4 mg/dL (0.15-1.2); Total Protein 7.4 g/dL (6.6-8.7)
--- NOTE | 2021-05-10 18:34 | CTR_ITS ---
PROCEDURE INFORMATION: Exam: CT Abdomen And Pelvis With Contrast Exam date and time: 05/10/2021 6:34 PM Age: 75 years old Clinical indication: Abdominal pain; Generalized; Prior surgery; Surgery date: 6+ months; Surgery type: Gb, cystostomy; Additional info: Suspect abd infection TECHNIQUE: Imaging protocol: Computed tomography of the abdomen and pelvis with contrast. Radiation optimization: All CT scans at this facility use at least one of these dose optimization techniques: automated exposure control; mA and/or kV adjustment per patient size (includes targeted exams where dose is matched to clinical indication); or iterative reconstruction. Contrast material: OMNI 300; Contrast volume: 95 ml; Contrast route: INTRAVENOUS (IV); COMPARISON: CT Chest/Abdomen/Pelvis w IV* 05/09/2019 5:08 PM RADIATION DOSE METRICS: Total DLP (mGy-cm): 2051.17 FINDINGS: Lungs: Mild atelectasis in the lung bases. Mediastinal space: Large hiatal hernia. Liver: Normal. No mass. Gallbladder and bile ducts: Cholecystectomy. Mild pneumobilia, consistent with prior sphincterotomy. Pancreas: Normal. No ductal dilation. Spleen: Normal. No splenomegaly. Adrenal glands: Normal. No mass. Kidneys and ureters: Normal. No hydronephrosis. Stomach and bowel: Diverticulosis of the distal colon. No diverticulitis. The small bowel is unremarkable. No wall thickening or obstruction. Appendix: The appendix is visualized and is normal. Intraperitoneal space: Unremarkable. No free air. No significant fluid collection. Vasculature: Coronary artery calcifications. Atherosclerotic calcifications. No aneurysm. Lymph nodes: Calcified mediastinal and left hilar lymph nodes. Urinary bladder: Suprapubic catheter in a decompressed urinary bladder. Reproductive: Calcifications in the prostate. Bones/joints: Unremarkable. No acute fracture. Soft tissues: Small fat containing umbilical hernia. CT/CT abdomen pelvis w con* [id number] IMPRESSION: 1. No acute abnormality identified in the abdomen or pelvis. 2. Diverticulosis of the distal colon. Radiation Dose CTDIVOL = (mGy): DLP = 2.17 (mGy-cm)
[2021-05-10] MEDS: iohexol 300 mg/mL 100 mL Btl IV (19:10)
[2021-05-10] MEDS: piperacillin-tazobactam 3.375 GM in sodium chloride 0.9% (plus) 50 ML IV (19:33)
[2021-05-10 19:58] LABS: Reflex Lactate Order REFLEX LACTIC ORDERD
[2021-05-10 20:00] LABS: Add Urine Microscopic? YES; Bilirubin Urine 1+ (Negative); Blood Urine 3+ (Negative); Glucose Urine UA Norm (Normal); Ketones Urine Negative (Negative); Leukocyte Esterase Urine 2+ (Negative); Nitrate Urine Negative (Negative); Protein Urine 1+ (Negative); Urine Color Yellow (Yellow); Urobilinogen Urine 8 mg/dL (Negative); pH Urine 6.5 (5-7)
[2021-05-10 20:03] LABS: Add Urine Culture? Yes; Bacteria Urine 2+ /hpf; RBC Urine >100 /hpf (0-2); Squamous Epithelial Cell Urine 0-4 /hpf (0-5); WBC Urine >100 /hpf (0-5)
[2021-05-10] MEDS: vancomycin 1,000 MG in sodium chloride 0.9% 250 ML 250 MG IV (20:10)
[2021-05-10] MEDS: sodium chloride 0.9% 1,000 ML 999 ML IV (20:10)
== END 2021-05-10 21:38 | disposition home or self-care (01) ==
PROVIDERS: Emergency Provider Nurse Practitioner Family; PCP Family Medicine
DX: N30.00 Acute cystitis without hematuria (principal); E11.9 Type 2 diabetes mellitus without complications; I48.91 Unspecified atrial fibrillation; E78.5 Hyperlipidemia, unspecified; Z87.891 Personal history of nicotine dependence; Z79.4 Long term (current) use of insulin
CPT/HCPCS: 36415; 51702; 71045; 74177; 80053; 81001; 83605; 85025; 87040; 87086; 87186; 96365; 96367; 99284; J2543; J3370; J7030; J7040; J7050; Q9967

== ENCOUNTER 2021-08-01 14:46 | Outpatient (CLI) | payer MEDICARE, MEDICAID, SELFPAY | END 2021-08-01 14:47 | disposition home or self-care (01) | LOC: WOUND 14:47 | PROVIDERS: PCP Family Medicine; Visit Provider Surgery | DX: L89.151 Pressure ulcer of sacral region, stage 1 (principal); L89.222 Pressure ulcer of left hip, stage 2; L89.213 Pressure ulcer of right hip, stage 3; E11.621 Type 2 diabetes mellitus with foot ulcer; L97.422 Non-pressure chronic ulcer of left heel and midfoot with fat layer exposed | CPT/HCPCS: 11042; 11045; 87070; 87077; 87176; 87186; 87205; A6219; G0463 ==

== ENCOUNTER 2021-09-19 09:46 | Outpatient (CLI) | payer MEDICARE, MEDICAID, SELFPAY | END 2021-09-19 09:47 | disposition home or self-care (01) | LOC: WOUND 09:46 | PROVIDERS: PCP Family Medicine; Visit Provider Surgery | DX: I96 Gangrene, not elsewhere classified (principal); E11.621 Type 2 diabetes mellitus with foot ulcer; L97.412 Non-pressure chronic ulcer of right heel and midfoot with fat layer exposed; L98.492 Non-pressure chronic ulcer of skin of other sites with fat layer exposed; L89.222 Pressure ulcer of left hip, stage 2 | CPT/HCPCS: 11042; 11043; 11045; 11046; 87070; 87077; 87186; 97597; 99212; A6212; A6220 ==

== ENCOUNTER → 2022-09-01 12:58 | Outpatient (BNVA) | payer MEDICARE, MEDICAID, SELFPAY | PROVIDERS: PCP Family Medicine; Visit Provider Thoracic Surgery (Cardiothoracic Vascular Surgery) | DX: I96 Gangrene, not elsewhere classified (principal); L89.214 Pressure ulcer of right hip, stage 4; E11.621 Type 2 diabetes mellitus with foot ulcer; L97.412 Non-pressure chronic ulcer of right heel and midfoot with fat layer exposed | CPT/HCPCS: 99308 ==

== ENCOUNTER → 2022-09-09 10:52 | Outpatient (BNVA) | payer MEDICARE, MEDICAID, SELFPAY | PROVIDERS: PCP Family Medicine; Visit Provider Thoracic Surgery (Cardiothoracic Vascular Surgery) | DX: L89.212 Pressure ulcer of right hip, stage 2 (principal); L89.612 Pressure ulcer of right heel, stage 2 ==

== ENCOUNTER → 2022-09-17 13:06 | Outpatient (BNVA) | payer MEDICARE, MEDICAID, SELFPAY | PROVIDERS: PCP Family Medicine; Visit Provider Thoracic Surgery (Cardiothoracic Vascular Surgery) | DX: L89.612 Pressure ulcer of right heel, stage 2 (principal); L89.212 Pressure ulcer of right hip, stage 2 ==

== ENCOUNTER → 2022-09-24 14:56 | Outpatient (BNVA) | payer MEDICARE, MEDICAID, SELFPAY | PROVIDERS: PCP Family Medicine; Visit Provider Thoracic Surgery (Cardiothoracic Vascular Surgery) | DX: I96 Gangrene, not elsewhere classified (principal); L89.219 Pressure ulcer of right hip, unspecified stage; L89.619 Pressure ulcer of right heel, unspecified stage ==

== ENCOUNTER → 2022-10-01 15:48 | Outpatient (BNVA) | payer MEDICARE, MEDICAID, SELFPAY | PROVIDERS: PCP Family Medicine; Visit Provider Thoracic Surgery (Cardiothoracic Vascular Surgery) | DX: L89.219 Pressure ulcer of right hip, unspecified stage (principal); L89.619 Pressure ulcer of right heel, unspecified stage ==

== ENCOUNTER → 2022-10-08 15:27 | Outpatient (BNVA) | payer MEDICARE, MEDICAID, SELFPAY | PROVIDERS: PCP Family Medicine; Visit Provider Thoracic Surgery (Cardiothoracic Vascular Surgery) | DX: L89.219 Pressure ulcer of right hip, unspecified stage (principal); L89.619 Pressure ulcer of right heel, unspecified stage ==

== ENCOUNTER → 2022-10-15 14:47 | Outpatient (BNVA) | payer MEDICARE, MEDICAID, SELFPAY | PROVIDERS: PCP Family Medicine; Visit Provider Thoracic Surgery (Cardiothoracic Vascular Surgery) | DX: L89.219 Pressure ulcer of right hip, unspecified stage (principal); L89.619 Pressure ulcer of right heel, unspecified stage | CPT/HCPCS: 87070; 87077; 87176; 87186; 87205 ==

== ENCOUNTER → 2023-12-14 13:00 | Outpatient (BNVA) | payer MEDICARE, MEDICAID, SELFPAY | PROVIDERS: PCP Family Medicine; Visit Provider Nurse Practitioner Family | DX: L89.214 Pressure ulcer of right hip, stage 4 (principal); E08.621 Diabetes mellitus due to underlying condition with foot ulcer; L97.512 Non-pressure chronic ulcer of other part of right foot with fat layer exposed | CPT/HCPCS: 87070; 87077; 87176; 87186; 87205 ==

== ENCOUNTER 2024-02-03 22:56 | Inpatient (IN) | payer MEDICARE, MEDICAID, SELFPAY ==
[2024-02-03 22:57] VITALS: BP 123/71; PULSE 83; RESP 23; TEMP 36.7; O2SAT 94; BMI 25.8
--- NOTE | 2024-02-03 22:57 | ECG_ITS ---
[facility] Test Date: 2024-02-03 Pat Name: Julián Tatum Department: Room: Gender: Male Distribution Field Technician: : 1945 Requested By: Donald Seo Order Number: [id number] MD: Bennie Garcia M.D. Measurements Intervals [place] Rate: 87 P: 49 W[place]: 188 QRS: 11 QRSD: 80 T: 49 QT: 343 QTc: 413 Interpretive Statements SINUS RHYTHM SEPTAL MYOCARDIAL INFARCTION , PROBABLY OLD [40+ ms Q WAVE IN V1/V2] ST DEPRESSION, CONSIDER SUBENDOCARDIAL INJURY [0.1+ mV ST DEPRESSION] Compared to ECG 06/13/2019 12:06:09 Myocardial infarct finding now present ST (T wave) deviation now present T-wave abnormality no longer present Possible ischemia no longer present Electronically Signed On 02-04-2024 13:08:23 CDT by Bennie Garcia M.D. [id number] f
--- NOTE | 2024-02-03 22:57 | XRR_ITS ---
PROCEDURE INFORMATION: Exam: XR Chest Exam date and time: 02/03/2024 11:20 PM Age: 78 years old Clinical indication: Shortness of breath; Additional info: Chest pain TECHNIQUE: Imaging protocol: Radiologic exam of the chest. Views: 1 view. COMPARISON: CR XR chest 1V portable [id number] 05/10/2021 6:39 PM FINDINGS: Lungs: Bibasilar reticular opacities, more on the left side. Pleural spaces: Unremarkable. No pleural effusion. No pneumothorax. Heart/Mediastinum: Hiatal hernia. Diaphragm: Elevation of the right hemidiaphragm. Bones/joints: Moderate degenerative of the right acromioclavicular joint and mild degenerative disease of bilateral glenohumeral joints. XR/XR chest 1V portable [id number] IMPRESSION: Bibasilar opacities that can represent atelectasis versus infiltrates.
--- NOTE | 2024-02-03 23:11 | ED_ITS ---
HPI - Chest Pain 2 General: Chief Complaint: Chest Pain Stated Complaint: CP Time Seen by Provider: 02/03/24 22:58 History of Present Illness: Patient presents to the ER by EMS from the assisted. Patient states has been having left-sided chest pain intermittently off and on all day long he cannot tell us how bad it was at the worst but he says it rates it with 2 or less currently. Patient did not get received nitro in the assisted. Per the patient has no cardiac history but is on digoxin. Per chart review he has had A-fib and chronic diastolic heart failure in the past. Patient also insulin-dependent diabetic Review of Systems 2 General: Reports: 10 or more systems reviewed and unremarkable except in HPI and below PFSH ED 2 PFSH: Medical History (Updated 02/04/24 @ 01:56 by Maia Sommer MD) Peripheral vascular disease Other retention of urine Other paralytic syndrome following cerebral infarction, bilateral Chronic diastolic (congestive) heart failure Degenerative disease of nervous system, unspecified Unspecified atrial fibrillation Atherosclerotic heart disease of [place] coronary artery with unspecified angina pectoris Hyperlipidemia, unspecified Gastro-esophageal reflux disease without esophagitis Essential (primary) hypertension Major depressive disorder, single episode, unspecified Type 2 diabetes mellitus with diabetic neuropathy, unspecified Erosion of urethra Elevated prostate specific antigen [PSA] Urinary retention Surgical History Cystostomy in place S/P cholecystectomy Family History Father Cancer Mother , 90 CAD (coronary artery disease) Social History Smoking and tobacco/nicotine status: former use of tobacco/nicotine Alcohol intake: never Substance/Drug Use: never Housing: [facility] Marital status: / Current occupational status: retired Physical Exam 2 Const: COMMON NORMALS: no acute distress, average body habitus, patient oriented x3, no limitations, healthy appearing, alert and well nourished HENMT: COMMON NORMALS: normocephalic, atraumatic, external ears normal, Normal external nose present, moist oral mucous membranes and oropharynx normal; hearing grossly not normal bilaterally (Hard of hearing) HEAD & SCALP: n ormocephalic and atraumatic NOSE: Normal external nose present EXTERNAL EAR: Yes external ears normal Neck/C-Spine: COMMON NORMALS: no JVD Chest: COMMONS NORMALS: normal inspection of the chest and normal palpation of entire chest wall Resp: COMMON NORMALS: normal respiratory effort, No retractions, No use of accessory muscles and clear to auscultation bilaterally AUSCULTATION: clear to auscultation bilaterally Cardio: COMMON NORMALS: no JVD, regular rate, regular rhythm, S1 normal heart sound present, S2 normal heart sound present, No gallops present (Cardio), No clicks present (Cardio), No murmurs present (Cardio) and No rub (Cardio) R ATE: regular rate RHYTHM: regular rhythm HEART SOUNDS: S1 normal heart sound present and S2 normal heart sound present GI: COMMON NORMALS: Normal to inspection, nondistended, normoactive bowel sounds present, Soft to palpation, non-tender, No hepatosplenomegaly present and no masses PALPATION: Yes Soft to palpation and Yes No hepatosplenomegaly present Neuro: COMMON NORMALS: patient oriented x3 SENSORIUM/ORIENTATION: Yes alert Course 2 Vital Signs: Vital signs: Vital Signs Temperature 98.0 F 02/03/24 22:57 Pulse Rate 79 02/04/24 01:45 Respiratory Rate 16 02/04/24 01:45 Blood Pressure 140/72 02/04/24 01:45 Pulse Oximetry 94 02/04/24 01:45 Oxygen Delivery Me thod Room Air 02/03/24 22:57 MDM - Chest Pain Medical Decision Making Dr. Groves was consulted about the patient's ST depression and elevated troponin patient will treat as an NSTEMI and probably go to Manufacturing Test Engineer tomorrow. Patient troponin went up approximately 94-1 26 to his 2-hour troponin patient was sleeping soundly pain-free during this time. Dr. Sommer was consulted who agreed to place patient in MPU for further evaluation and treatment. Differential Diagnosis Unlikely acute massive pulmonary embolism, acute respiratory failure, acute myocardial infarction, cardiac arrest or sudden cardiac Medical Records I reviewed the patient's medical records. Lab Data I reviewed the patient's lab results. 02/03/24 23:08 02/03/24 23:08 Radiology Impressions Chest X-Ray 02/03/24 22:57 IMPRESSION: Bibasilar opacities that can represent atelectasis versus infiltrates. Laboratory Results WBC 9.20 10^3/uL (3.29-11.43) 02/03/24 23:08 RBC 3.87 10^6/uL (3.85-5.65) 02/03/24 23:08 Hgb 11.10 g/dL (11.27-16.99) L 02/03/24 23:08 Hct 35.1 % (37-53) L 02/03/24 23:08 MCV 90.7 fl (82-101) 02/03/24 23:08 MCH 28.7 pg (27-33) 02/03/24 23:08 MCHC 31.6 g/dL (30-55) 02/03/24 23:08 RDW 18.3 % (12.1-15.1) H 02/03/24 23:08 Plt Count 122 10^3/cmm (157-399) L 02/03/24 23:08 MPV 12.3 fL (7.4-10.4) H 02/03/24 23:08 Neut % (Auto) 78.9 % 02/03/24 23:08 Lymph % (Auto) 13.5 % 02/03/24 23:08 Edgar % (Auto) 4.7 % 02/03/24 23:08 Eos % (Auto) 2.1 % 02/03/24 23:08 Baso % (Auto) 0.4 % 02/03/24 23:08 Neut # (Auto) 7.26 10^3/uL (1.8-7.7) 02/03/24 23:08 Lymph # (Auto) 1.2 10^3/uL (0.8-4.8) 02/03/24 23:08 Edgar # (Auto) 0.4 10^3/uL (0.2-0.9) 02/03/24 23:08 Eos # (Auto) 0.2 10^3/uL (0.0-0.8) 02/03/24 23:08 Baso # (Auto) 0.0 10^3/uL (0.0-0.1) 02/03/24 23:08 Nucleated RBC % (auto) 0 % 02/03/24 23:08 Nucleated RBCs # 0.0 /100WBC 02/03/24 23:08 Sodium 133 mmol/L (136-145) L 02/03/24 23:08 Potassium 4.5 mmol/L (3.5-5.1) 02/03/24 23:08 Chloride 101 mmol/L (98-107) 02/03/24 23:08 Carbon Dioxide 20 mmol/L (22-29) L 02/03/24 23:08 Anion Gap 16.5 (5-19) 02/03/24 23:08 BUN 22 mg/dL (8-23) 02/03/24 23:08 Creatinine 1.0 mg/dL (0.7-1.2) 02/03/24 23:08 GFR Calculation Not Reportable 02/03/24 23:08 Glucose 138 mg/dL (65-115) H 02/03/24 23:08 Calculated Osmolality 282 mOsm/kg (285-295) L 02/03/24 23:08 Calcium 8.1 mg/dL (8.5-10.5) L 02/03/24 23:08 Total Bilirubin 0.2 mg/dL (0.15-1.2) 02/03/24 23:08 AST 17 U/L (0-40) 02/03/24 23:08 ALT 19 U/L (0-41) 02/03/24 23:08 Alkaline Phosphatase 96 U/L (40-130) 02/03/24 23:08 Troponin T Baseline 94 ng/L (0-15) H 02/03/24 23:08 Troponin T 120 Minute 126.2 ng/L (0-15) H 02/04/24 00:37 Delta Troponin T 32.2 ABS# (0-10) H* 02/04/24 00:37 NT-Pro-B Natriuret Pep 1579 pg/mL (0-450) H 02/03/24 23:08 Total Protein 7.1 g/dL (6.6-8.7) 02/03/24 23:08 Albumin 3.2 g/dL (3.5-5.2) L 02/03/24 23:08 Globulin 3.9 g/dL (1.3-4.6) 02/03/24 23:08 Digoxin 0.7 ng/mL (0.6-1.2) 02/03/24 23:08 All radiology interpretation(s) finalized by discharge EKG Data EKG 1: I personally reviewed and interpreted this EKG as follows: EKG interpretation date: 02/03/24 EKG interpretation time: 23:03 Prior EKG tracings: not available for review Interpretation: Ventricular rate 87 bpm, [place] interval 188, QRS duration 80, QTc of 387's, sinus rhythm, ST depression noted in leads V2 to V3 for 5 and 2 3 and aVF Discharge Plan Discharge Patient Disposition: Admitted As Inpatient Clinical Impression: Non-ST elevation ME (NSTEMI) Condition: Stable Prescriptions: No Action aspirin 325 mg tablet 325 mg PO .prn Hold Instructions: Resume on 07/01/20. finasteride 5 mg tablet 5 mg PO DAILY omeprazole 40 mg capsule,delayed release(DR/EC) 40 mg PO DAILY metoprolol tartrate 50 mg tablet 75 mg PO BID digoxin 125 mcg (0.125 mg) tablet 125 mcg PO DAILY atorvastatin 20 mg tablet 20 mg PO DAILY nitroglycerin [Nitrostat] 0.4 mg tablet, sublingual 0.4 mg SUBLINGUAL .prn Biofreeze (menthol) 4 % gel 1 applic TOPICAL .prn PRN (Reason: Pain) hydrocodone-acetaminophen 5-325 mg tablet 1 tab PO BEDTIME PRN (Reason: Pain) Eucerin Skin Calming Cream 1 applic TOPICAL .prn Levemir U-100 Insulin 100 unit/mL solution 75 unit SUBCUT BEDTIME Rx Instructions: 100 units SUBCUT 70 units at bedtime; Novolog FlexPen U-100 Insulin 100 unit/mL (3 mL) insulin pen 18 unit SUBCUT DAILY Rx Instructions: and sliding scale polyethylene glycol 3350 17 gram/dose powder 17 gm PO DAILY loratadine [Claritin] 10 mg tablet 10 mg PO DAILY nutritional uobsk-omkkuo-ikz 0.03-1 gram-kcal/mL liquid 1 each PO BID bisacodyl 10 mg suppository 10 mg [place] DAILY PRN acetaminophen [Tylenol] 325 mg tablet 325 mg PO QID PRN prostat PO BID nystatin 100,000 unit/gram ointment 1 applic topical BID PRN lidocaine HCl [Lidocaine Viscous] 2 % solution 1 applic topical ONCE Qty: 1 0RF lidocaine HCl [Lidocaine Viscous] 2 % solution 1 applic topical ONCE Qty: 1 0RF lidocaine HCl [Lidocaine Viscous] 2 % solution 1 applic topical ONCE Qty: 1 0RF lidocaine HCl [Lidocaine Viscous] 2 % solution 1 applic topical ONCE Qty: 1 0RF lidocaine HCl [Lidocaine Viscous] 2 % solution 1 applic topical ONCE Qty: 1 0RF lidocaine HCl [Lidocaine Viscous] 2 % solution 1 applic topical ONCE Qty: 1 0RF lidocaine HCl [Lidocaine Viscous] 2 % solution 1 applic topical ONCE Qty: 1 0RF lidocaine HCl [Lidocaine Viscous] 2 % solution 1 applic topical ONCE Qty: 1 0RF lidocaine HCl [Lidocaine Viscous] 2 % solution 1 applic topical ONCE Qty: 1 0RF lidocaine HCl [Lidocaine Viscous] 2 % solution 1 applic topical ONCE Qty: 1 0RF lidocaine HCl [Lidocaine Viscous] 2 % solution 1 applic topical ONCE Qty: 1 0RF lidocaine HCl [Lidocaine Viscous] 2 % solution 1 applic topical ONCE Qty: 1 0RF lidocaine HCl [Lidocaine Viscous] 2 % solution 1 applic topical ONCE Qty: 1 0RF lidocaine HCl [Lidocaine Viscous] 2 % solution 1 applic topical ONCE Qty: 1 0RF alprazolam 0.25 mg tablet PO lidocaine HCl [Lidocaine Viscous] 2 % solution 1 applic topical ONCE Qty: 1 0RF lidocaine HCl [Lidocaine Viscous] 2 % solution 1 applic topical ONCE Qty: 1 0RF lidocaine HCl [Lidocaine Viscous] 2 % solution 1 applic topical ONCE Qty: 1 0RF lidocaine HCl [Lidocaine Viscous] 2 % solution 1 applic topical ONCE Qty: 1 0RF lidocaine HCl [Lidocaine Viscous] 2 % solution 1 applic topical ONCE Qty: 1 0RF lidocaine HCl [Lidocaine Viscous] 2 % solution 1 applic topical ONCE Qty: 1 0RF lidocaine HCl [Lidocaine Viscous] 2 % solution 1 applic topical ONCE Qty: 1 0RF lidocaine HCl [Lidocaine Viscous] 2 % solution 1 applic topical ONCE Qty: 1 0RF lidocaine HCl [Lidocaine Viscous] 2 % solution 1 applic topical ONCE Qty: 1 0RF lidocaine HCl [Lidocaine Viscous] 2 % solution 1 applic topical ONCE Qty: 1 0RF lidocaine HCl [Lidocaine Viscous] 2 % solution 1 applic topical ONCE Qty: 1 0RF lidocaine HCl [Lidocaine Viscous] 2 % solution 1 applic topical ONCE Qty: 1 0RF lidocaine HCl [Lidocaine Viscous] 2 % solution 1 applic topical ONCE Qty: 1 0RF lidocaine HCl [Lidocaine Viscous] 2 % solution 1 applic topical ONCE Qty: 1 0RF lidocaine HCl [Lidocaine Viscous] 2 % solution 1 applic topical ONCE Qty: 1 0RF lidocaine HCl [Lidocaine Viscous] 2 % solution 1 applic topical ONCE Qty: 1 0RF lidocaine HCl [Lidocaine Viscous] 2 % solution 1 applic topical ONCE Qty: 1 0RF lidocaine HCl [Lidocaine Viscous] 2 % solution 1 applic topical ONCE Qty: 1 0RF lidocaine HCl [Lidocaine Viscous] 2 % solution 1 applic topical ONCE Qty: 1 0RF lidocaine HCl [Lidocaine Viscous] 2 % solution 1 applic topical ONCE Qty: 1 0RF lidocaine HCl [Lidocaine Viscous] 2 % solution 1 applic topical ONCE Qty: 1 0RF hydrocodone-acetaminophen 5-325 mg Tablet 1 tab PO BID PRN (Reason: Pain) Eucerin Calm Itch(menthol-oat) 0.1 % Lotion 1 % TOPICAL BID Referrals: Jannette Stephens MD [Primary Care Provider] - Coding Level of Care Code ED [employer] Machine Operator for Kiesha Hull
[2024-02-03 23:16] LABS: Basophils % 0.4 %; Eosinophils # 0.2 10^3/uL (0.0-0.8); Eosinophils % 2.1 %; Hematocrit 35.1 % (37-53); Lymphocytes # 1.2 10^3/uL (0.8-4.8); Lymphocytes % 13.5 %; Mean Corpuscular HGB Conc 31.6 g/dL (30-55); Mean Corpuscular Hemoglobin 28.7 pg (27-33); Mean Corpuscular Volume 90.7 fl (82-101); Mean Platelet Volume 12.3 fL (7.4-10.4); Monocytes # 0.4 10^3/uL (0.2-0.9); Monocytes % 4.7 %; Neutrophils # 7.26 10^3/uL (1.8-7.7); Neutrophils % 78.9 %; Nucleated Red Blood Cells % 0 %; Platelet Count 122 10^3/cmm (157-399); Red Blood Count 3.87 10^6/uL (3.85-5.65); Red Cell Distribution Width 18.3 % (12.1-15.1)
[2024-02-03] MEDS: nitroglycerin 1 gm/inch oint Pkt 0.5 INCH TOPICAL (23:21)
[2024-02-03] MEDS: aspirin 81 mg Chew Tablet 324 MG PO (23:21)
[2024-02-03 23:37] VITALS: BP 127/75; PULSE 83; RESP 18; O2SAT 93
[2024-02-03 23:38] LABS: Digoxin 0.7 ng/mL (0.6-1.2)
[2024-02-03 23:40] LABS: Troponin(5th) Baseline 94 ng/L (0-15)
[2024-02-03 23:49] LABS: Alanine Aminotransferase 19 U/L (0-41); Albumin Level 3.2 g/dL (3.5-5.2); Alkaline Phosphatase 96 U/L (40-130); Aspartate Amino Transferase 17 U/L (0-40); Blood Urea Nitrogen 22 mg/dL (8-23); Calcium 8.1 mg/dL (8.5-10.5); Carbon Dioxide 20 mmol/L (22-29); Chloride 101 mmol/L (98-107); Creatinine Clr Calc Pharmacy 59.9037; Globulin 3.9 g/dL (1.3-4.6); Glucose 138 mg/dL (65-115); NT Pro B Type Natriuretic Pept 1579 pg/mL (0-450); Osmolality Calculated 282 mOsm/kg (285-295); Sodium 133 mmol/L (136-145); Total Bilirubin 0.2 mg/dL (0.15-1.2); Total Protein 7.1 g/dL (6.6-8.7)
[2024-02-03 23:56] LABS: Anion Gap 16.5 (5-19); Potassium 4.5 mmol/L (3.5-5.1)
[2024-02-04] VITALS (14 sets, daily range): BP systolic 91–140; BP diastolic 49–83; PULSE 58–82; RESP 15–24; TEMP 36.3–37.2; O2SAT 93–96; BMI 26.5
--- NOTE | 2024-02-04 00:42 | ECG_ITS ---
[facility] Test Date: 2024-02-04 Pat Name: Julián Tatum Department: Room: Gender: Male Licensed Weigher: : 1945 Requested By: Donald Seo Order Number: [id number] MD: Bennie Garcia M.D. Measurements Intervals [place] Rate: 82 P: 30 CO: 183 QRS: 8 QRSD: 99 T: 32 QT: 369 QTc: 432 Interpretive Statements SINUS RHYTHM NONSPECIFIC ST & T-WAVE ABNORMALITY Compared to ECG 06/13/2019 12:06:09 Possible ischemia no longer present T-wave abnormality still present Electronically Signed On 02-04-2024 13:11:04 CDT by Bennie Garcia M.D. [id number]
[2024-02-04 01:47] LABS: Troponin 5 2HR 126.2 ng/L (0-15); Troponin 5 2HR Delta 32.2 ABS# (0-10)
--- NOTE | 2024-02-04 01:54 | PM.HP ---
Providers/Chief Complaint Primary Care Provider: Jannette Stephens MD Chief Complaint: CP History of Present Illness Julián Tatum is a 78 year old male With past medical history of peripheral vascular disease, atrial fibrillation, hyperlipidemia, GERD, hypertension, depression, type 2 diabetes mellitus, urinary tension, chronic diastolic congestive heart failure, chronic heel wounds currently being followed up at wound care clinic presented to the hospital today with complaint of chest pain. He came from the intermediate. He has been having left-sided chest pain intermittently all day however cannot tell us how bad it is. Patient did not receive nitro prior to arrival. He does not have any significant ischemic cardiac history but is on digoxin secondary to atrial fibrillation. Digoxin level in ER 0.7. Patient has had some dependent at home. EKG showed ST depressions in leads V2 to V3. Initial troponin 94, delta at 6 hour 40. Denies nausea vomiting diarrhea constipation, abdominal pain at this time. Poor historian accompanied by son who states dad has dementia. Son would like to pursue cardiac cath. Medications/Allergies Home Medications Medication Instructions Recorded Confirmed Last Taken Type aspirin 325 mg tablet 325 mg PO .prn 09/27/19 02/04/24 06/20/20 History atorvastatin 20 mg tablet 10 mg PO DAILY 09/27/19 02/04/24 06/26/20 History digoxin 125 mcg (0.125 mg) tablet 125 mcg PO DAILY 09/27/19 02/04/24 06/27/20 History emollient combination no.69 1 applic topical .prn 09/27/19 02/04/24 06/26/20 History (Eucerin Skin Calming cream) finasteride 5 mg tablet 5 mg PO DAILY 09/27/19 02/04/24 06/26/20 History hydrocodone 5 mg-acetaminophen 325 1 tab PO Q4-5H PRN Pain 09/27/19 02/04/24 06/26/20 History mg tablet insulin detemir U-100 100 unit/mL 75 unit SUBCUT BEDTIME 09/27/19 02/04/24 06/26/20 History subcutaneous solution (Levemir U-100 Insulin) menthol 4 % topical gel (Biofreeze 1 applic topical .prn PRN Pain 09/27/19 02/04/24 06/26/20 History (menthol)) metoprolol tartrate 50 mg tablet 25 mg PO BID 09/27/19 02/04/24 06/27/20 06:00 History nitroglycerin 0.4 mg sublingual 0.4 mg sublingual .prn 09/27/19 02/04/24 Unknown History tablet (Nitrostat) omeprazole 40 mg capsule,delayed 40 mg PO DAILY 09/27/19 02/04/24 06/26/20 History release hydrocodone 5 mg-acetaminophen 325 1 tab PO BID Pain 10/16/19 02/04/24 06/27/20 History mg tablet menthol-colloidal oatmeal 0.1 % 1 % topical BID 10/16/19 02/04/24 06/26/20 History lotion (Eucerin Skin Calming Itch-Relief (menthol-oatmeal)) insulin aspart U-100 100 unit/mL 18 unit SUBCUT DAILY 06/19/20 02/04/24 06/26/20 History (3 mL) subcutaneous pen (Novolog FlexPen U-100 Insulin aspart) loratadine 10 mg tablet (Claritin) 10 mg PO DAILY 06/19/20 02/04/24 06/26/20 History nutritional nabbsiuwse-lxvivv-twr 1 each PO BID 06/19/20 02/04/24 06/26/20 History 0.03 gram-1 kcal/mL oral liquid polyethylene glycol 3350 17 17 gm PO DAILY 06/19/20 02/04/24 Unknown History gram/dose oral powder acetaminophen 325 mg tablet 325 mg PO QID 08/01/20 02/04/24 Unknown History (Tylenol) bisacodyl 10 mg rectal suppository 10 mg MA PRN PRN Constipation 08/01/20 02/04/24 Unknown History nystatin 100,000 unit/gram topical 1 applic topical BID PRN Skin 08/01/20 02/04/24 Unknown History ointment Irritation prostat See Rx Instructions .Route .COMPLEX 08/01/20 02/04/24 Unknown History alprazolam 0.25 mg tablet 1 mg PO BID 11/09/23 02/04/24 Unknown History Allergies Allergy/AdvReac Type Severity Reaction Status Date / Time codeine Allergy NA Verified 02/03/24 23:10 metformin Allergy NA Verified 02/03/24 23:10 PFSH Acute PFSH: Medical History (Updated 02/04/24 @ 01:56 by Maia Sommer MD) Peripheral vascular disease Other retention of urine Other paralytic syndrome following cerebral infarction, bilateral Chronic diastolic (congestive) heart failure Degenerative disease of nervous system, unspecified Unspecified atrial fibrillation Atherosclerotic heart disease of [place] coronary artery with unspecified angina pectoris Hyperlipidemia, unspecified Gastro-esophageal reflux disease without esophagitis Essential (primary) hypertension Major depressive disorder, single episode, unspecified Type 2 diabetes mellitus with diabetic neuropathy, unspecified Erosion of urethra Elevated prostate specific antigen [PSA] Urinary retention Surgical History Cystostomy in place S/P cholecystectomy Family History Father Cancer Mother , 90 CAD (coronary artery disease) Social History Smoking and tobacco/nicotine status: former use of tobacco/nicotine Alcohol intake: never Substance/Drug Use: never Housing: Residential Marital status: / Current occupational status: retired Vitals/I&O/Wt Last Vital Signs Temp 98.0 F 02/03/24 22:57 Pulse 79 02/04/24 01:45 Resp 16 02/04/24 01:45 BP 140/72 02/04/24 01:45 Pulse Ox 94 02/04/24 01:45 O2 Del Method Room Air 02/03/24 22:57 Weight last 48 hrs Weight 77.111 kg Physical Exam Narrative: General: Alert oriented x3, patient seen laying in bed appearing comfortable at this time. Patient is a poor historian. HEENT: Normocephalic, atraumatic, EOMI breathing room air saturating 93% Cardio: Regular rate rhythm, normal S1-S2 Respiratory: Good bilateral air entry, no wheezes no rhonchi appreciated GI: Abdomen soft, nontender, nondistended, bowel sounds + Extremities: No edema bilateral lower extremities, Right hip wound with mild odor 2 cm approx, right heal pressure wound pressure. Data 02/03/24 23:08 02/03/24 23:08 A&P Assessment and plan (1) Non-ST elevation DC (NSTEMI): (2) Diabetic ulcer of right foot associated with diabetes mellitus due to underlying condition, with fat layer exposed: (3) Diabetic ulcer of left foot associated with diabetes mellitus due to underlying condition, with fat layer exposed: (4) Decubitus ulcer of right hip, stage 4: Plan #Chest pain, NSTEMI #HLD #HTN #Chronic right hip and right heal wound, followed up at wound care #GERD #Depression #Chronic diastolic heart failure #Insulin dependent diabetes mellitus - Start ACS protocol, aspirin, plavix, atorvastatin, lopressor 75 bid - start heparin gtt - consult cardiology - May start nitro gtt if chest pain persistent - check dig level, hold dig at this time - dressing change order placed in chart, see wound care note from this morning - check echo - BNP 1579, no previous records available on patient, will hold of on lasix, appears euvolemic - check hba1c, tsh, lipid profile Full Code DVT PPX: on heparin gtt Attestations Medical Necessity Statement*: >2 midnight stay for nstemi Diagnoses Non-ST elevation DC (NSTEMI) I21.4 Diabetic ulcer of right foot associated with diabetes mellitus due to underlying condition, with fat layer exposed E08.621; L97.512 Diabetic ulcer of left foot associated with diabetes mellitus due to underlying condition, with fat layer exposed E08.621; L97.522 Decubitus ulcer of right hip, stage 4 L89.214
--- NOTE | 2024-02-04 01:57 | USCV_ITS ---
Julián Tatum Age: 78 Gender: M : 1945 Exam Date: 02/04/2024 02:51 Ordering Phys: Maia Sommer MD Technologist: JOHN [place] [facility] [place]: left-sided chest pain tonight. History of atrial fibrillation. History of chronic diastolic heart failure. IDDM. BP: 130 / 81 HR: 76 Rhythm: Sinus Technical Quality: Adequate MEASUREMENTS (Male / Female) Normal Values 2D ECHO LV Diastolic Diameter PLAX 3.7 cm 4.2 - 5.9 / 3.9 - 5.3 cm IVS Diastolic Thickness 1.3 cm 0.6 - 1.0 / 0.6 - 0.9 cm IVS Systolic Thickness 2.4 cm LVPW Diastolic Thickness 1.3 cm 0.6 - 1.0 / 0.6 - 0.9 cm LVPW Systolic Thickness 1.6 cm LVOT Diameter 1.9 cm LV Ejection Fraction 2D Teich 49.8 % LV Ejection Fraction MOD 2C 40.7 % LV Ejection Fraction 2C AL 40.7 % LA Diameter 4.8 cm Aorta at Sinotubular Diameter 3.2 cm IVC Diameter 1.4 cm M-MODE LA Ao Ratio MM 1.2 AV Cusp Separation MM 1.7 cm DOPPLER AV Peak Velocity 129.0 cm/s LVOT Peak Velocity 91.0 cm/s AV Area Cont Eq vti 2.4 cm squared AV Area Cont Eq pk 2.0 cm squared MV Peak Velocity 86.0 cm/s MV Area PHT 3.3 cm squared Mitral E to A Ratio 1.6 TR Peak Velocity 300.0 cm/s TR Peak Gradient 36.0 mmHg TV Peak E Velocity 35.0 cm/s Right Atrial Pressure 10.0 mmHg Pulmonary Artery Systolic Pressu 46.0 mmHg PV Peak Velocity 108.0 cm/s FINDINGS Left Ventricle Left ventricle is normal size. LV systolic function is moderately reduced with EF of 35 to 40%. Moderate to severe hypokinesis of apical, anterior and anterolateral mcneal. Right Ventricle Normal in size and function Right Atrium Normal in size Left Atrium Normal in size Mitral Valve Mild mitral valve calcification. Mild mitral regurgitation. Aortic Valve Aortic valve is thickened. No significant stenosis or regurgitation. Tricuspid Valve Mild tricuspid regurgitation. RVSP is 45 to 50 mmHg. This is consistent with moderate pulmonary hypertension. Pulmonic Valve Not well visualized Pericardium Normal Aorta Normal in size IVC Appears to be normal CONCLUSIONS LV systolic function is moderately reduced with EF of 35-40% Mild mitral regurgitation Mild tricuspid regurgitation Moderate pulmonary hypertension Compared to prior echocardiogram from 2019, LV systolic function has significantly decreased. Bennie Garcia MD (Electronically Signed) Final Date: 04 Feb 2024 12:52 S
[2024-02-04 02:26] LABS: Procalcitonin 0.09 ng/mL (0-0.5); Thyroid Stimulating Hormone 1.31 uIU/mL (0.27-4.20)
[2024-02-04 02:37] LABS: Chol HDL Ratio 3.55 mg/dL (1.0-5.00); Cholesterol 135 mg/dL (0-200); HDL Cholesterol 38 mg/dL (60-100); LDL Cholesterol Calculated 69 mg/dL (50-129); LDL HDL Ratio 1.82 RATIO (0.00-3.22); Triglycerides 138 mg/dL (0-150)
[2024-02-04 03:14] LABS: Estmated Average Glucose 140; Hemoglobin A1C 6.5 % (4.0-6.0)
[2024-02-04] MEDS: clopidogrel 300 mg Tablet PO (03:31)
[2024-02-04] MEDS: atorvastatin 40 mg Tablet 80 MG PO (03:31)
[2024-02-04] MEDS: sodium chloride 0.9% 1,000 ML 75 ML IV (03:31)
[2024-02-04] MEDS: heparin drip 25,000 UNIT/500 ML PREMIX 22 UNIT IV (04:07)
--- NOTE | 2024-02-04 04:57 | ECG_ITS ---
[facility] Test Date: 2024-02-04 Pat Name: Julián Tatum Department: Room: 104 Gender: Male Nurse Aide: : 1945 Requested By: Donald Seo Order Number: [id number] MD: Bennie Garcia M.D. Measurements Intervals [place] Rate: 68 P: -37 GA: 173 QRS: 23 QRSD: 106 T: -13 QT: 388 QTc: 413 Interpretive Statements SINUS RHYTHM NONSPECIFIC ST & T-WAVE ABNORMALITY Compared to ECG 02/04/2024 00:42:12 No significant changes Electronically Signed On 02-04-2024 13:11:00 CDT by Bennie Garcia M.D. [id number]
[2024-02-04 06:08] LABS: Troponin 5 6HR 141.3 ng/L (0-15); Troponin 5 6HR Delta 47.3 ng/L (0-12)
[2024-02-04 06:46] LABS: Glucose Point of Care 90 mg/dL (70-110)
--- NOTE | 2024-02-04 07:40 | PM.CONSULT ---
Providers/Reason For Consult Consulting Physician/Specialty*: Bennie Garcia MD/ Cardiology Reason for Consult*: NSTEMI Requesting Physician: Dr Seo Attending Physician: Kathy Oro MD Primary Care Provider: Jannette Stephens MD History of Present Illness History of Present Illness Julián Tatum is a 78 year old male with past medical history of hypertension, diabetes, PAD, atrial fibrillation not on anticoagulation, chronic pressure ulcers being followed by wound care clinic, contractures of the lower extremities, dementia who is longterm resident presented to ER with intermittent chest pain for 1 day. No prior significant coronary artery disease history. Patient is chest pain-free at this time. EKG shows ST depressions in multiple leads. Initial troponin was 94 that trended up to 141 at 6 hours. Echocardiogram demonstrates moderately reduced EF of 35 to 40%. This is a decrease from previous echocardiogram. Review of Systems General: Reports: 10 or more systems reviewed and unremarkable except in HPI and below Medications/Allergies Home Medications Medication Instructions Recorded Confirmed Last Taken Type aspirin 325 mg tablet 325 mg PO .prn 09/27/19 02/04/24 06/20/20 History atorvastatin 20 mg tablet 10 mg PO DAILY 09/27/19 02/04/24 06/26/20 History digoxin 125 mcg (0.125 mg) tablet 125 mcg PO DAILY 09/27/19 02/04/24 06/27/20 History emollient combination no.69 1 applic topical .prn 09/27/19 02/04/24 06/26/20 History (Eucerin Skin Calming cream) finasteride 5 mg tablet 5 mg PO DAILY 09/27/19 02/04/24 06/26/20 History hydrocodone 5 mg-acetaminophen 325 1 tab PO Q4-5H PRN Pain 09/27/19 02/04/24 06/26/20 History mg tablet insulin detemir U-100 100 unit/mL 75 unit SUBCUT BEDTIME 09/27/19 02/04/24 06/26/20 History subcutaneous solution (Levemir U-100 Insulin) menthol 4 % topical gel (Biofreeze 1 applic topical .prn PRN Pain 09/27/19 02/04/24 06/26/20 History (menthol)) metoprolol tartrate 50 mg tablet 25 mg PO BID 09/27/19 02/04/24 06/27/20 06:00 History nitroglycerin 0.4 mg sublingual 0.4 mg sublingual .prn 09/27/19 02/04/24 Unknown History tablet (Nitrostat) omeprazole 40 mg capsule,delayed 40 mg PO DAILY 09/27/19 02/04/24 06/26/20 History release hydrocodone 5 mg-acetaminophen 325 1 tab PO BID Pain 10/16/19 02/04/24 06/27/20 History mg tablet menthol-colloidal oatmeal 0.1 % 1 % topical BID 10/16/19 02/04/24 06/26/20 History lotion (Eucerin Skin Calming Itch-Relief (menthol-oatmeal)) insulin aspart U-100 100 unit/mL 18 unit SUBCUT DAILY 06/19/20 02/04/24 06/26/20 History (3 mL) subcutaneous pen (Novolog FlexPen U-100 Insulin aspart) loratadine 10 mg tablet (Claritin) 10 mg PO DAILY 06/19/20 02/04/24 06/26/20 History nutritional jliqwuymjf-xfzodi-rwh 1 each PO BID 06/19/20 02/04/24 06/26/20 History 0.03 gram-1 kcal/mL oral liquid polyethylene glycol 3350 17 17 gm PO DAILY 06/19/20 02/04/24 Unknown History gram/dose oral powder acetaminophen 325 mg tablet 325 mg PO QID 08/01/20 02/04/24 Unknown History (Tylenol) bisacodyl 10 mg rectal suppository 10 mg AL PRN PRN Constipation 08/01/20 02/04/24 Unknown History nystatin 100,000 unit/gram topical 1 applic topical BID PRN Skin 08/01/20 02/04/24 Unknown History ointment Irritation prostat See Rx Instructions .Route .COMPLEX 08/01/20 02/04/24 Unknown History alprazolam 0.25 mg tablet 1 mg PO BID 11/09/23 02/04/24 Unknown History Allergies Allergy/AdvReac Type Severity Reaction Status Date / Time codeine Allergy NA Verified 02/03/24 23:10 metformin Allergy NA Verified 02/03/24 23:10 Current Medications Generic Name Dose Route Start Last Admin Trade Name Freq PRN Reason Stop Dose Admin Atorvastatin Calcium 80 mg 02/04/24 02:00 02/04/24 03:31 Atorvastatin 40 Mg Tablet PO 80 mg Q24H ISAAC Administration Sodium Chloride 1,000 mls @ 75 mls/hr 02/04/24 02:00 02/04/24 03:31 Sodium Chloride 0.9% IV 75 mls/hr .[id number] ISAAC Administration Heparin Sodium/Sodium Chloride 25,000 unit in 500 mls @ 0 mls/hr 02/04/24 02:00 02/04/24 04:07 Heparin Drip IV 14.27 unit/kg/hr .Q0M ISAAC 22 mls/hr Administration Protocol Per Protocol Insulin Human Lispro 0 unit 02/04/24 08:00 02/04/24 07:29 Insulin Lispro 100 Unit/1 Ml SUBCUT Not Given WM&BEDTIME ISAAC Protocol PFSH Acute PFSH: Medical History Peripheral vascular disease Other retention of urine Other paralytic syndrome following cerebral infarction, bilateral Chronic diastolic (congestive) heart failure Degenerative disease of nervous system, unspecified Unspecified atrial fibrillation Atherosclerotic heart disease of [place] coronary artery with unspecified angina pectoris Hyperlipidemia, unspecified Gastro-esophageal reflux disease without esophagitis Essential (primary) hypertension Major depressive disorder, single episode, unspecified Type 2 diabetes mellitus with diabetic neuropathy, unspecified Erosion of urethra Elevated prostate specific antigen [PSA] Urinary retention Surgical History Cystostomy in place S/P cholecystectomy Family History Father Cancer Mother , 90 CAD (coronary artery disease) Social History Smoking and tobacco/nicotine status: former use of tobacco/nicotine Alcohol intake: never Substance/Drug Use: never Housing: [facility] Marital status: / Current occupational status: retired Vitals/I&O/Wt Last Vital Signs Temp 98.5 F 02/04/24 03:01 Pulse 65 02/04/24 06:00 Resp 15 02/04/24 03:01 BP 134/83 02/04/24 03:01 Pulse Ox 95 02/04/24 03:01 O2 Del Method Room Air 02/04/24 03:01 02/03/24 02/04/24 02/04/24 22:59 06:59 14:59 Intake Total 0 / 0 Output Total 100 / 100 Balance -100 / -100 Weight last 48 hrs Weight 177 lb Weight 174 lb 6 oz Weight 170 lb Physical Exam Narrative: GENERAL: Patient is alert NECK: No jugular vein distension. [] HEENT: No cyanosis. No icterus. No pallor. [] HEART: Regular S1 and S2. No murmur, rub or gallop. [] LUNGS: Clear to auscultate bilaterally. [] CENTRAL NERVOUS SYSTEM: Grossly nonfocal. [] EXTREMITIES: Has contractures of lower extremities, not able to straighten them. Data 02/05/24 05:02 02/05/24 05:02 A&P Assessment and plan (1) Non-ST elevation [place] (NSTEMI): (2) Hyperlipidemia, unspecified: (3) Essential (primary) hypertension: Plan Patient has multiple medical problems and has limited functional capacity. Also has dementia. Unable to lay down straight and flat. Has contractures of lower extremities. Performing coronary angiogram will be technically challenging and unsafe if femoral access is required. Will will discuss situation with the family however in current scenario, medical therapy will be best way to proceed. Dual antiplatelet therapy. High intensity statin therapy. Beta-blockers. Continue anticoagulation for 48 hours. Thank you for involving us with care of this patient. We will continue to follow. Please call with questions. Consult Attestations Medical Necessity Statement: Care expected to cross 2 midnights. Coding Level of Care Code Acute Code for [facility] Fwd Diagnoses Non-ST elevation [place] (NSTEMI) I21.4 Hyperlipidemia, unspecified E78.5 Essential (primary) hypertension I10
[2024-02-04] MEDS: metoprolol tartrate 50 mg Tablet 75 MG PO ×2 (08:43→17:25)
[2024-02-04] MEDS: pantoprazole DR 40 mg Tablet PO (08:43)
[2024-02-04] MEDS: clopidogrel 75 mg Tablet PO (08:43)
[2024-02-04] MEDS: aspirin 81 mg EC Tablet PO (08:43)
--- NOTE | 2024-02-04 09:47 | P.PN_ITS ---
Subjective 2 Subjective: Upon entering the room patient was able to make eye contact and asked me if he is in trouble I reassured him and asked if he is in pain he replied that he is not in any active pain at all Dr. Garcia is not planning for angiogram because of extremity contractures patient not able to lay supine Recommendation for now is to manage medically Vitals/I&O/Wt Last Vital Signs Temp 97.8 F 02/04/24 07:49 Pulse 64 02/04/24 07:49 Resp 21 H 02/04/24 07:49 BP 108/63 02/04/24 07:49 Pulse Ox 94 02/04/24 07:49 O2 Del Method Room Air 02/04/24 07:45 02/03/24 02/04/24 02/04/24 22:59 06:59 14:59 Intake Total 0 / 0 Output Total 100 / 100 Balance -100 / -100 Weight last 48 hrs Weight 80.286 kg Weight 79.095 kg Weight 77.111 kg Physical Exam 2 Narrative: Extremity contractures Multiple pressure injuries around hip area ankles bilaterally Euvolemic Currently on room air No active chest pain Abdomen soft l GCS 15 Hemodynamically stable Blood pressure stable Data 02/03/24 23:08 02/03/24 23:08 A&P Assessment and plan (1) Essential (primary) hypertension: (2) Chronic diastolic (congestive) heart failure: (3) Non-ST elevation [place] (NSTEMI): (4) Diabetic ulcer of right foot associated with diabetes mellitus due to underlying condition, with fat layer exposed: (5) Diabetic ulcer of left foot associated with diabetes mellitus due to underlying condition, with fat layer exposed: (6) Ulcer of right foot due to type 2 diabetes mellitus: (7) Decubitus ulcer of right hip, stage 4: (8) Alteration in skin integrity due to moisture: (9) Stage II pressure ulcer of left hip: (10) Pressure ulcer of left buttock, stage 2: (11) Pressure ulcer of sacral region, stage 2: (12) Gastro-esophageal reflux disease without esophagitis: Plan Plan is to treat him medically No plan for angiogram Start cardiac diet Continue ACS protocol for 48 hours Will wait on echo report Dressing change for sacral ulcer and ankle ulcer, offloading dressing in place Patient is full code Hemoglobin A1c 6.5, patient not in active pain Digoxin level within normal range normal TSH Start cardiac diet today Likely will be discharged over the weekend Attestations 2 Medical Necessity Statement*: Continue medical management Coding Level of Care Code Acute Code for [facility] Fwd Diagnoses Essential (primary) hypertension I10 Chronic diastolic (congestive) heart failure I50.32 Non-ST elevation [place] (NSTEMI) I21.4 Diabetic ulcer of right foot associated with diabetes mellitus due to underlying condition, with fat layer exposed E08.621; L97.512 Diabetic ulcer of left foot associated with diabetes mellitus due to underlying condition, with fat layer exposed E08.621; L97.522 Ulcer of right foot due to type 2 diabetes mellitus E11.621; L97.519 Decubitus ulcer of right hip, stage 4 L89.214 Alteration in skin integrity due to moisture R23.9 Stage II pressure ulcer of left hip L89.222 Pressure ulcer of left buttock, stage 2 L89.322 Pressure ulcer of sacral region, stage 2 L89.152 Gastro-esophageal reflux disease without esophagitis K21.9
[2024-02-04 11:12] LABS: Partial Thromboplastin Time 64.7 SECONDS (23.9-36.7)
[2024-02-04 11:19] LABS: Glucose Point of Care 53 mg/dL (70-110)
--- NOTE | 2024-02-04 11:45 | PC.NURSE ---
noon blood sugar at 53. Patient remains alert and oriented. Patient was given orange juice. Informed Dr Oro
[2024-02-04 17:10] LABS: Glucose Point of Care 77 mg/dL (70-110)
[2024-02-04] MEDS: ALPRAZolam 0.5 mg Tablet 1 MG PO (17:25)
[2024-02-04] MEDS: HYDROcodone-acetaminophen 5-325 mg Tablet 1 TAB PO (17:25)
[2024-02-04 20:40] LABS: Glucose Point of Care 185 mg/dL (70-110)
[2024-02-04] MEDS: insulin glargine 100 units/1 mL 50 UNIT SUBCUT (21:26)
[2024-02-04] MEDS: insulin lispro 100 unit/1 mL SUBCUT (21:27)
[2024-02-04] MEDS: LORazepam 2 mg/mL INJ 1 mL 0.5 MG IVP (22:14)
[2024-02-04 23:25] LABS: Partial Thromboplastin Time 90.6 SECONDS (23.9-36.7)
[2024-02-05] VITALS (10 sets, daily range): BP systolic 95–154; BP diastolic 50–71; PULSE 62–83; RESP 12–30; TEMP 36.4–37.7; O2SAT 88–96
[2024-02-05] MEDS: atorvastatin 40 mg Tablet 80 MG PO (01:57)
[2024-02-05 05:45] LABS: Basophils % 0.5 %; Eosinophils # 0.2 10^3/uL (0.0-0.8); Eosinophils % 2.7 %; Hematocrit 33.3 % (37-53); Lymphocytes % 23.5 %; Mean Corpuscular HGB Conc 31.2 g/dL (30-55); Mean Corpuscular Hemoglobin 28.5 pg (27-33); Mean Corpuscular Volume 91.2 fl (82-101); Mean Platelet Volume 12.4 fL (7.4-10.4); Monocytes # 0.6 10^3/uL (0.2-0.9); Neutrophils # 5.69 10^3/uL (1.8-7.7); Nucleated Red Blood Cells % 0 %; Platelet Count 101 10^3/cmm (157-399); Red Blood Count 3.65 10^6/uL (3.85-5.65); Red Cell Distribution Width 18.7 % (12.1-15.1); White Blood Count 8.62 10^3/uL (3.29-11.43)
[2024-02-05 06:13] LABS: Alanine Aminotransferase 23 U/L (0-41); Albumin Level 3.4 g/dL (3.5-5.2); Alkaline Phosphatase 100 U/L (40-130); Aspartate Amino Transferase 19 U/L (0-40); Blood Urea Nitrogen 17 mg/dL (8-23); Calcium 7.6 mg/dL (8.5-10.5); Carbon Dioxide 22 mmol/L (22-29); Chloride 104 mmol/L (98-107); Creatinine Clr Calc Pharmacy 67.3996; Globulin 3.2 g/dL (1.3-4.6); Glucose 58 mg/dL (65-115); Magnesium 2.5 mg/dL (1.7-2.3); Osmolality Calculated 285 mOsm/kg (285-295); Sodium 138 mmol/L (136-145); Total Bilirubin 0.2 mg/dL (0.15-1.2); Total Protein 6.6 g/dL (6.6-8.7)
[2024-02-05] MEDS: heparin drip 25,000 UNIT/500 ML PREMIX 19 UNIT IV (06:15)
[2024-02-05 06:18] LABS: Blood Urea Nitrogen 18 mg/dL (8-23); Calcium 7.7 mg/dL (8.5-10.5); Carbon Dioxide 23 mmol/L (22-29); Chloride 104 mmol/L (98-107); Creatinine Clr Calc Pharmacy 67.3996; Glucose 62 mg/dL (65-115); Osmolality Calculated 286 mOsm/kg (285-295); Sodium 138 mmol/L (136-145)
[2024-02-05 06:32] LABS: Glucose Point of Care 53 mg/dL (70-110)
[2024-02-05 07:48] LABS: Partial Thromboplastin Time 67.7 SECONDS (23.9-36.7)
--- NOTE | 2024-02-05 08:20 | PM.PN ---
Subjective Subjective: Patient is chest pain free. Vitals/I&O/Wt Last Vital Signs Temp 98.0 F 02/05/24 07:07 Pulse 83 02/05/24 08:05 Resp 20 H 02/05/24 08:05 BP 115/54 02/05/24 07:07 Pulse Ox 94 02/05/24 08:05 O2 Del Method Room Air 02/05/24 08:05 02/04/24 02/05/24 02/05/24 22:59 06:59 14:59 Intake Total 100 / 891.483 589.767 / 1481.250 Output Total 850 / 850 452 / 1302 Balance -750 / 41.483 137.767 / 179.250 Weight last 48 hrs Weight 175 lb Weight 177 lb Weight 174 lb 6 oz Weight 170 lb Physical Exam Narrative: GENERAL: Patient is alert NECK: No jugular vein distension. [] HEENT: No cyanosis. No icterus. No pallor. [] HEART: Regular S1 and S2. No murmur, rub or gallop. [] LUNGS: Clear to auscultate bilaterally. [] CENTRAL NERVOUS SYSTEM: Grossly nonfocal. [] EXTREMITIES: Has contractures of lower extremities, not able to straighten them. Pressure ulcers Data 02/05/24 05:02 02/05/24 05:02 A&P Assessment and plan (1) Non-ST elevation [place] (NSTEMI): (2) Hyperlipidemia, unspecified: (3) Essential (primary) hypertension: Plan Patient has multiple medical problems and has limited functional capacity. Also has dementia. Unable to lay down straight and flat. Has contractures of lower extremities. Performing coronary angiogram will be technically challenging and unsafe if femoral access is required. Primary team contacted family and shared decision was made to proceed with medical therapy. Patient's CODE STATUS also was changed to DNR. Patient is staying chest pain free. Dual antiplatelet therapy. High intensity statin therapy. Beta-blockers. Continue anticoagulation for 48 hours. Thank you for involving us with care of this patient. Please call with questions. Attestations Medical Necessity Statement*: Care expected to cross 2 midnights. Coding Level of Care Code Acute Code for [facility] Diagnoses Non-ST elevation [place] (NSTEMI) I21.4 Hyperlipidemia, unspecified E78.5 Essential (primary) hypertension I10
[2024-02-05 09:13] LABS: Glucose Point of Care 119 mg/dL (70-110)
[2024-02-05] MEDS: ALPRAZolam 0.5 mg Tablet 1 MG PO ×2 (09:26→17:16)
[2024-02-05] MEDS: metoprolol tartrate 50 mg Tablet 75 MG PO ×2 (09:26→17:16)
[2024-02-05] MEDS: HYDROcodone-acetaminophen 5-325 mg Tablet 1 TAB PO ×2 (09:26→17:16)
[2024-02-05] MEDS: pantoprazole DR 40 mg Tablet PO (09:26)
[2024-02-05] MEDS: clopidogrel 75 mg Tablet PO (09:26)
[2024-02-05] MEDS: aspirin 81 mg EC Tablet PO (09:27)
[2024-02-05] MEDS: morphine 4 mg/mL SDV 1 mL IVP ×2 (09:29→20:00)
[2024-02-05 11:47] LABS: Glucose Point of Care 101 mg/dL (70-110)
--- NOTE | 2024-02-05 11:50 | P.PN_ITS ---
Subjective 2 Subjective: Patient denies chest pain or chills. He does seem a little bit anxious. He does ask if he is can be okay. Discussed plan of care. He is in agreement. Denies nausea or vomiting. Denies other new complaints. Medications: Reviewed: Yes Vitals/I&O/Wt Last Vital Signs Temp 98.5 F 02/05/24 11:15 Pulse 74 02/05/24 11:15 Resp 21 H 02/05/24 11:15 BP 101/52 02/05/24 11:15 Pulse Ox 88 L 02/05/24 11:15 O2 Del Method Room Air 02/05/24 11:15 02/04/24 02/05/24 02/05/24 22:59 06:59 14:59 Intake Total 100 / 891.483 589.767 / 1481.250 434.733 / 434.733 Output Total 850 / 850 452 / 1302 Balance -750 / 41.483 137.767 / 179.250 434.733 / 434.733 Weight last 48 hrs Weight 79.379 kg Weight 80.286 kg Weight 79.095 kg Weight 77.111 kg Physical Exam 2 Narrative: General: Patient is awake. Head: Normocephalic. Atraumatic. EOM intact. Neck: No JVD. Cardiovascular: RRR. No gallops. No murmurs. Lungs: Breath sounds are slightly diminished, no use of accessory muscles, no crackles or wheezes. Skin: No jaundice. No rashes. Abdomen: Normal bowel sounds, abdomen soft and nontender. Extremities: No cyanosis or clubbing. Musculoskeletal: Contractures. Neurological: No myoclonus. Data 02/05/24 05:02 02/05/24 05:02 A&P Assessment and plan (1) Essential (primary) hypertension: (2) Chronic diastolic (congestive) heart failure: (3) Non-ST elevation [place] (NSTEMI): (4) Diabetic ulcer of right foot associated with diabetes mellitus due to underlying condition, with fat layer exposed: (5) Diabetic ulcer of left foot associated with diabetes mellitus due to underlying condition, with fat layer exposed: (6) Ulcer of right foot due to type 2 diabetes mellitus: (7) Decubitus ulcer of right hip, stage 4: (8) Alteration in skin integrity due to moisture: (9) Stage II pressure ulcer of left hip: (10) Pressure ulcer of left buttock, stage 2: (11) Pressure ulcer of sacral region, stage 2: (12) Gastro-esophageal reflux disease without esophagitis: Plan Patient discussed with cardiology, medically treating Continue heparin drip for 48 hours which will complete on Wednesday morning Continue dual antiplatelet therapy with aspirin and Plavix Continue high intensity statin with Lipitor Continue beta-melanie with metoprolol Continue wound care Discontinue IV opiates Hypoglycemia noted, reduce glargine dosing Continue hypoglycemia protocol Hold sliding-scale correction for now and monitor sugars Hopefully discharge on Wednesday Attestations 2 Medical Necessity Statement*: Patient is being treated with ACS protocol requiring heparin drip for 48 hours for which he continues ongoing hospitalization. Coding Level of Care Code Acute Code for [facility] Fwd Diagnoses Essential (primary) hypertension I10 Chronic diastolic (congestive) heart failure I50.32 Non-ST elevation [place] (NSTEMI) I21.4 Diabetic ulcer of right foot associated with diabetes mellitus due to underlying condition, with fat layer exposed E08.621; L97.512 Diabetic ulcer of left foot associated with diabetes mellitus due to underlying condition, with fat layer exposed E08.621; L97.522 Ulcer of right foot due to type 2 diabetes mellitus E11.621; L97.519 Decubitus ulcer of right hip, stage 4 L89.214 Alteration in skin integrity due to moisture R23.9 Stage II pressure ulcer of left hip L89.222 Pressure ulcer of left buttock, stage 2 L89.322 Pressure ulcer of sacral region, stage 2 L89.152 Gastro-esophageal reflux disease without esophagitis K21.9
[2024-02-05 16:43] LABS: Glucose Point of Care 112 mg/dL (70-110)
[2024-02-05 16:43] LABS: Partial Thromboplastin Time 75.3 SECONDS (23.9-36.7)
[2024-02-05 20:19] LABS: Glucose Point of Care 134 mg/dL (70-110)
[2024-02-05] MEDS: insulin glargine 100 units/1 mL 35 UNIT SUBCUT (21:17)
[2024-02-06] VITALS (7 sets, daily range): BP systolic 99–106; BP diastolic 48–60; PULSE 59–63; RESP 18–28; TEMP 36.6–37.2; O2SAT 91–95
[2024-02-06 00:15] LABS: Partial Thromboplastin Time 69.6 SECONDS (23.9-36.7)
[2024-02-06 00:33] LABS: Platelet Count 116 10^3/cmm (157-399)
[2024-02-06] MEDS: atorvastatin 40 mg Tablet 80 MG PO (03:21)
[2024-02-06 06:56] LABS: Partial Thromboplastin Time 75.8 SECONDS (23.9-36.7)
[2024-02-06 06:58] LABS: Glucose Point of Care 96 mg/dL (70-110)
--- NOTE | 2024-02-06 09:39 | PM.DCS ---
Discharge Providers Date of Admission: 02/04/24 01:58 Date of Discharge: February 06, 2024 Attending Provider at Admission: Maia Sommer MD Attending Provider at Discharge: Caesar Jasso MD Primary Care Provider: Jannette Stephens MD Diagnoses at Discharge Discharge Diagnosis (1) Essential (primary) hypertension: Status: Acute (2) Chronic diastolic (congestive) heart failure: Status: Acute (3) Non-ST elevation WI (NSTEMI): Status: Acute (4) Diabetic ulcer of right foot associated with diabetes mellitus due to underlying condition, with fat layer exposed: Status: Acute (5) Diabetic ulcer of left foot associated with diabetes mellitus due to underlying condition, with fat layer exposed: Status: Acute (6) Ulcer of right foot due to type 2 diabetes mellitus: Status: Acute (7) Decubitus ulcer of right hip, stage 4: Status: Acute (8) Alteration in skin integrity due to moisture: Status: Acute (9) Stage II pressure ulcer of left hip: Status: Acute (10) Pressure ulcer of left buttock, stage 2: Status: Acute (11) Pressure ulcer of sacral region, stage 2: Status: Acute (12) Gastro-esophageal reflux disease without esophagitis: Status: Acute Reason for Visit Reason for Visit: CP Hospital Course Hospital Course Julián Tatum is a 78-year-old male with past medical history significant for peripheral vascular disease, cerebral infarction, unspecified atrial fibrillation, coronary artery disease, hyperlipidemia, GERD, type 2 diabetes mellitus, and hypertension who presented with chest pain, found to have NSTEMI. Patient treated medically with ACS protocol including dual antiplatelet therapy, high intensity statin, beta-melanie, nitrates as needed, and therapeutic anticoagulation with heparin drip for 48 hours. Cardiology consulted and followed. Cardiology recommended medical management given his contractures and chronic debility. Symptomatology improved. Medications were optimized as per discharge medication reconciliation. Patient was discharged back to nursing facility in stable condition. Physical Exam Narrative: General: Patient is awake. Head: Normocephalic. Atraumatic. EOM intact. Neck: No JVD. Cardiovascular: RRR. No gallops. No murmurs. Lungs: Breath sounds are slightly diminished, no use of accessory muscles, no crackles or wheezes. Skin: No jaundice. Pressure injury present on right hip and right heel. Abdomen: Normal bowel sounds, abdomen soft and nontender. Extremities: No cyanosis or clubbing. Musculoskeletal: Contractures. Neurological: No myoclonus. Discharge Data Studies Completed and Pending Completed Studies During Hospitalization Category Date Time Status XR chest 1V portable [id number] Stat Exams 02/03/24 22:57 Completed CV. echo complete* [id number] Stat Ultrasound 02/04/24 01:57 Completed Pending at discharge Category Date Time Status PTT [Partial Thromboplastin Time] Timed Lab 02/06/24 13:15 Ordered Platelet Count Q2D Lab 02/08/24 04:00 Ordered Radiology Impressions Chest X-Ray 02/03/24 22:57 IMPRESSION: Bibasilar opacities that can represent atelectasis versus infiltrates. Laboratory Results WBC 8.62 10^3/uL (3.29-11.43) 02/05/24 05:02 RBC 3.65 10^6/uL (3.85-5.65) L 02/05/24 05:02 Hgb 10.40 g/dL (11.27-16.99) L 02/05/24 05:02 Hct 33.3 % (37-53) L 02/05/24 05:02 MCV 91.2 fl (82-101) 02/05/24 05:02 MCH 28.5 pg (27-33) 02/05/24 05:02 MCHC 31.2 g/dL (30-55) 02/05/24 05:02 RDW 18.7 % (12.1-15.1) H 02/05/24 05:02 Plt Count 116 10^3/cmm (157-399) L 02/06/24 00:00 MPV 12.4 fL (7.4-10.4) H 02/05/24 05:02 Neut % (Auto) 66.0 % 02/05/24 05:02 Lymph % (Auto) 23.5 % 02/05/24 05:02 Blair % (Auto) 7.0 % 02/05/24 05:02 Eos % (Auto) 2.7 % 02/05/24 05:02 Baso % (Auto) 0.5 % 02/05/24 05:02 Neut # (Auto) 5.69 10^3/uL (1.8-7.7) 02/05/24 05:02 Lymph # (Auto) 2.0 10^3/uL (0.8-4.8) 02/05/24 05:02 Blair # (Auto) 0.6 10^3/uL (0.2-0.9) 02/05/24 05:02 Eos # (Auto) 0.2 10^3/uL (0.0-0.8) 02/05/24 05:02 Baso # (Auto) 0.0 10^3/uL (0.0-0.1) 02/05/24 05:02 Nucleated RBC % (auto) 0 % 02/05/24 05:02 Nucleated RBCs # 0.0 /100WBC 02/05/24 05:02 APTT 75.8 SECONDS (23.9-36.7) H 02/06/24 06:21 Sodium 138 mmol/L (136-145) 02/05/24 05:02 Sodium 138 mmol/L (136-145) 02/05/24 05:02 Potassium 4.0 mmol/L (3.5-5.1) 02/05/24 05:02 Potassium 4.0 mmol/L (3.5-5.1) 02/05/24 05:02 Chloride 104 mmol/L (98-107) 02/05/24 05:02 Chloride 104 mmol/L (98-107) 02/05/24 05:02 Carbon Dioxide 22 mmol/L (22-29) 02/05/24 05:02 Carbon Dioxide 23 mmol/L (22-29) 02/05/24 05:02 Anion Gap 15.0 (5-19) 02/05/24 05:02 Anion Gap 16.0 (5-19) 02/05/24 05:02 BUN 17 mg/dL (8-23) 02/05/24 05:02 BUN 18 mg/dL (8-23) 02/05/24 05:02 Creatinine 0.9 mg/dL (0.7-1.2) 02/05/24 05:02 Creatinine 0.9 mg/dL (0.7-1.2) 02/05/24 05:02 GFR Calculation Not Reportable 02/05/24 05:02 GFR Calculation Not Reportable 02/05/24 05:02 Glucose 58 mg/dL (65-115) L 02/05/24 05:02 Glucose 62 mg/dL (65-115) L 02/05/24 05:02 POC Glucose 96 mg/dL (70-110) 02/06/24 06:39 Estimat Average Glucose 140 02/03/24 23:08 Hemoglobin A1c 6.5 % (4.0-6.0) H 02/03/24 23:08 Calculated Osmolality 285 mOsm/kg (285-295) 02/05/24 05:02 Calculated Osmolality 286 mOsm/kg (285-295) 02/05/24 05:02 Calcium 7.6 mg/dL (8.5-10.5) L 02/05/24 05:02 Calcium 7.7 mg/dL (8.5-10.5) L 02/05/24 05:02 Magnesium 2.5 mg/dL (1.7-2.3) H 02/05/24 05:02 Total Bilirubin 0.2 mg/dL (0.15-1.2) 02/05/24 05:02 AST 19 U/L (0-40) 02/05/24 05:02 ALT 23 U/L (0-41) 02/05/24 05:02 Alkaline Phosphatase 100 U/L (40-130) 02/05/24 05:02 Troponin T Baseline 94 ng/L (0-15) H 02/03/24 23:08 Troponin T 120 Minute 126.2 ng/L (0-15) H 02/04/24 00:37 Delta Troponin T 32.2 ABS# (0-10) H* 02/04/24 00:37 Troponin T Hi Sens 6Hr 141.3 ng/L (0-15) H 02/04/24 05:15 Troponin T Hi Sens 6Hr Delta 47.3 ng/L (0-12) H* 02/04/24 05:15 NT-Pro-B Natriuret Pep 1579 pg/mL (0-450) H 02/03/24 23:08 Total Protein 6.6 g/dL (6.6-8.7) 02/05/24 05:02 Albumin 3.4 g/dL (3.5-5.2) L 02/05/24 05:02 Globulin 3.2 g/dL (1.3-4.6) 02/05/24 05:02 Triglycerides 138 mg/dL (0-150) 02/04/24 00:37 Cholesterol 135 mg/dL (0-200) 02/04/24 00:37 LDL Cholesterol, Calc 69 mg/dL (50-129) 02/04/24 00:37 HDL Cholesterol 38 mg/dL (60-100) L 02/04/24 00:37 LDL/HDL Ratio 1.82 RATIO (0.00-3.22) 02/04/24 00:37 Cholesterol/HDL Ratio 3.55 mg/dL (1.0-5.00) 02/04/24 00:37 Procalcitonin 0.09 ng/mL (0-0.5) 02/04/24 00:37 TSH 1.31 uIU/mL (0.27-4.20) 02/04/24 00:37 Digoxin 0.7 ng/mL (0.6-1.2) 02/03/24 23:08 Vitals Last Vital Signs Temp 98.5 F 02/06/24 03:31 Pulse 62 02/06/24 06:00 Resp 19 H 02/06/24 03:31 BP 106/60 02/06/24 03:31 Pulse Ox 95 02/06/24 03:31 O2 Del Method Nasal Cannula 02/06/24 03:31 O2 Flow Rate 2 02/06/24 03:31 Discharge Plan Discharge Patient Disposition: Home Condition: Stable Prescriptions: New aspirin 81 mg Tablet,Delayed Release (Dr/Ec) 81 mg PO DAILY 90 Days Qty: 90 0RF atorvastatin 40 mg Tablet 80 mg PO Q24H 90 Days Qty: 180 0RF clopidogrel 75 mg Tablet 75 mg PO DAILY 90 Days Qty: 90 0RF Continued finasteride 5 mg tablet 5 mg PO DAILY omeprazole 40 mg capsule,delayed release(DR/EC) 40 mg PO DAILY digoxin 125 mcg (0.125 mg) tablet 125 mcg PO DAILY nitroglycerin [Nitrostat] 0.4 mg tablet, sublingual 0.4 mg SUBLINGUAL .prn Biofreeze (menthol) 4 % gel 1 applic TOPICAL .prn PRN (Reason: Pain) hydrocodone-acetaminophen 5-325 mg tablet 1 tab PO Q4-5H PRN (Reason: Pain) Eucerin Skin Calming Cream 1 applic TOPICAL .prn Levemir U-100 Insulin 100 unit/mL solution 75 unit SUBCUT BEDTIME Rx Instructions: 100 units SUBCUT 70 units at bedtime; Novolog FlexPen U-100 Insulin 100 unit/mL (3 mL) insulin pen 18 unit SUBCUT DAILY Rx Instructions: and sliding scale polyethylene glycol 3350 17 gram/dose powder 17 gm PO DAILY loratadine [Claritin] 10 mg tablet 10 mg PO DAILY nutritional [id number] 0.03-1 gram-kcal/mL liquid 1 each PO BID bisacodyl 10 mg suppository 10 mg MS PRN PRN (Reason: Constipation) acetaminophen [Tylenol] 325 mg tablet 325 mg PO QID prostat See Rx Instructions .ROUTE .COMPLEX Rx Instructions: Twice daily nystatin 100,000 unit/gram ointment 1 applic topical BID PRN (Reason: Skin Irritation) alprazolam 0.25 mg tablet 1 mg PO BID hydrocodone-acetaminophen 5-325 mg Tablet 1 tab PO BID Eucerin Calm Itch(menthol-oat) 0.1 % Lotion 1 % TOPICAL BID Changed metoprolol tartrate 50 mg tablet 50 mg PO BID 90 Days Qty: 180 0RF Discontinued aspirin 325 mg tablet 325 mg PO .prn Hold Instructions: Resume on 07/01/20. atorvastatin 20 mg tablet 10 mg PO DAILY Discharge Orders: Discharge Order (Routine); Ordered 02/06/24 Ordered By: Caesar Jasso Referrals: Jannette Stephens MD [Primary Care Provider] - 4-7 days (We have notified your physician's clinic of the need for a follow-up appointment to be scheduled. If you have not heard from them within the next 2 business days, please call them directly. ) Discharge Diet: Advance as tolerated, Cardiac, Diabetic and Low Salt Discharge Activity: Limit activity as instructed and As per cardiac/pulm rehab instructions Patient Instructions: Aspirin (By mouth), Atorvastatin (By mouth) (Lipitor, Atorvaliq), Clopidogrel (By mouth) (Plavix), Heart Failure (DC), GERD (Gastroesophageal Reflux Disease) (DC), Hypertension (DC), CHF Stoplight, Opioid Safety, Post Heart Attack Stoplight Activity Restrictions/Additional Instructions: 1. No strenuous activity for the next 3 weeks. 2. Take medications as prescribed. 3. Follow-up with nursing facility physician within 1 week. Discharge Attestations Time Spent in Discharge Care*: greater than 30 min Quality Metrics Clinical Quality Measures [ No reported AMI, CVA or VTE this stay] Coding Level of Care Code Acute Code for Chg Fwd Diagnoses Essential (primary) hypertension I10 Chronic diastolic (congestive) heart failure I50.32 Non-ST elevation WI (NSTEMI) I21.4 Diabetic ulcer of right foot associated with diabetes mellitus due to underlying condition, with fat layer exposed E08.621; L97.512 Diabetic ulcer of left foot associated with diabetes mellitus due to underlying condition, with fat layer exposed E08.621; L97.522 Ulcer of right foot due to type 2 diabetes mellitus E11.621; L97.519 Decubitus ulcer of right hip, stage 4 L89.214 Alteration in skin integrity due to moisture R23.9 Stage II pressure ulcer of left hip L89.222 Pressure ulcer of left buttock, stage 2 L89.322 Pressure ulcer of sacral region, stage 2 L89.152 Gastro-esophageal reflux disease without esophagitis K21.9
--- NOTE | 2024-02-06 09:40 | P.PN_ITS ---
Subjective 2 Subjective: Patient doing well. No chest pain. Vitals/I&O/Wt Last Vital Signs Temp 98.5 F 02/06/24 03:31 Pulse 62 02/06/24 06:00 Resp 19 H 02/06/24 03:31 BP 106/60 02/06/24 03:31 Pulse Ox 95 02/06/24 03:31 O2 Del Method Nasal Cannula 02/06/24 03:31 O2 Flow Rate 2 02/06/24 03:31 02/05/24 02/06/24 02/06/24 22:59 06:59 14:59 Intake Total 135.85 / 570.583 234.883 / 234.883 Output Total 450 / 450 Balance -314.15 / 120.583 234.883 / 234.883 Weight last 48 hrs Weight 173 lb 12.8 oz Weight 175 lb Physical Exam 2 Narrative: GENERAL: Patient is alert NECK: No jugular vein distension. [] HEENT: No cyanosis. No icterus. No pallor. [] HEART: Regular S1 and S2. No murmur, rub or gallop. [] LUNGS: Clear to auscultate bilaterally. [] CENTRAL NERVOUS SYSTEM: Grossly nonfocal. [] EXTREMITIES: Has contractures of lower extremities, not able to straighten them. Pressure ulcers Data 02/06/24 00:00 02/05/24 05:02 A&P Assessment and plan (1) Non-ST elevation [place] (NSTEMI): (2) Hyperlipidemia, unspecified: (3) Essential (primary) hypertension: Plan Patient is stable. No chest pain. Dual antiplatelet therapy. Completed 48 hours of anticoagulation. Thank you for involving us with care of this patient. Please call with questions. Attestations 2 Medical Necessity Statement*: Care expected to cross 2 midnights. Coding Level of Care Code Acute Code for [facility] Diagnoses Non-ST elevation IA (NSTEMI) I21.4 Hyperlipidemia, unspecified E78.5 Essential (primary) hypertension I10
[2024-02-06] MEDS: clopidogrel 75 mg Tablet PO (09:48)
[2024-02-06] MEDS: HYDROcodone-acetaminophen 5-325 mg Tablet 1 TAB PO (09:48)
[2024-02-06] MEDS: ALPRAZolam 0.5 mg Tablet 1 MG PO (09:48)
[2024-02-06] MEDS: aspirin 81 mg EC Tablet PO (09:48)
[2024-02-06] MEDS: metoprolol tartrate 50 mg Tablet 75 MG PO (09:48)
[2024-02-06] MEDS: pantoprazole DR 40 mg Tablet PO (09:49)
[2024-02-06 13:16] LABS: Glucose Point of Care 96 mg/dL (70-110)
[2024-02-06 14:12] LABS: Partial Thromboplastin Time 31.1 SECONDS (23.9-36.7)
--- NOTE | 2024-02-06 14:14 | PC.NURSE ---
Report called to Hakan Davison and given to Mayra Pereira LPN
--- NOTE | 2024-02-06 14:19 | PC.NURSE ---
GARCIA called @ 14:16P.M. to arrange stretcher ride to [facility]. Trip I.D. # [id number] Spoke with Lala.
--- NOTE | 2024-02-06 16:54 | PC.NURSE ---
Discharge Note Patient discharged to [[facility]] via [stretcher] [place] [place] Discharge instructions reviewed with patient and/or signs sales representative. Mobile pharmacy medications and/or prescriptions provided. Belongings/home medications returned.
== END 2024-02-06 16:55 | disposition skilled nursing facility (03) | DRG 280 ==
LOC: ER 02-04 02:00 → CSU 02-04 02:04
PROVIDERS: Internal Medicine; Admitting Provider Internal Medicine; Emergency Provider Emergency Medicine; PCP Family Medicine; Visit Provider Internal Medicine
DX: I21.4 Non-ST elevation (NSTEMI) myocardial infarction (principal); L89.214 Pressure ulcer of right hip, stage 4; I48.20 Chronic atrial fibrillation, unspecified; I50.32 Chronic diastolic (congestive) heart failure; L97.412 Non-pressure chronic ulcer of right heel and midfoot with fat layer exposed; L97.422 Non-pressure chronic ulcer of left heel and midfoot with fat layer exposed; I11.0 Hypertensive heart disease with heart failure; Z87.891 Personal history of nicotine dependence; Z79.4 Long term (current) use of insulin; Z79.82 Long term (current) use of aspirin; F03.90 Unspecified dementia, unspecified severity, without behavioral disturbance, psychotic disturbance, mood disturbance, and anxiety; Z66 Do not resuscitate; K21.9 Gastro-esophageal reflux disease without esophagitis; I73.9 Peripheral vascular disease, unspecified; E78.5 Hyperlipidemia, unspecified; I25.10 Atherosclerotic heart disease of native coronary artery without angina pectoris; E11.649 Type 2 diabetes mellitus with hypoglycemia without coma; Z93.50 Unspecified cystostomy status; G83.89 Other specified paralytic syndromes; E11.621 Type 2 diabetes mellitus with foot ulcer; L89.222 Pressure ulcer of left hip, stage 2; L89.322 Pressure ulcer of left buttock, stage 2; L89.152 Pressure ulcer of sacral region, stage 2
CPT/HCPCS: 36415; 36416; 71045; 80048; 80053; 80061; 80162; 82962; 83036; 83735; 83880; 84145; 84443; 84484; 85025; 85049; 85730; 93005; 93306; 96372; 96374; 96376; 99285; J1644; J1815; J2060; J2270; J7030

== ENCOUNTER → 2024-03-07 11:25 | Outpatient (BNVA) | payer MEDICARE, MEDICAID, SELFPAY | PROVIDERS: PCP Family Medicine; Visit Provider Nurse Practitioner Family | DX: L89.214 Pressure ulcer of right hip, stage 4 (principal); L89.222 Pressure ulcer of left hip, stage 2 | CPT/HCPCS: 87070; 87176; 87186; 87205 ==